=== PATIENT | male | born 1935 | race Caucasian/White ===

== ENCOUNTER 2021-10-29 05:40 | Inpatient (IN) | payer MEDICARE ==
[2021-10-29] MEDS ORDERED: SODIUM CHLORIDE 0.9% 1,000 ML IV STA (05:41)
[2021-10-29] MEDS ORDERED: IPRATROPIUM-ALBUTEROL 3 ML NEB INHALATION STA (05:41)
--- NOTE | 2021-10-29 05:43 | ED ---
SOB HPI - General Stated Complaint: EDGAR, vomiting Time Seen by Provider: 10/29/21 05:41 Source: RN notes reviewed, old records reviewed Mode of arrival: EMS Limitations: no limitations - History of Present Illness Initial Comments: This is a 86-year-old male who presents by EMS. Patient's brought in originally cough for left assessment he is having nausea vomiting and fell out of bed. Patient had significant shortness of breath with hypoxia in the low 80s. Placed on nonrebreather then placed on CPAP. Patient resents the ER with elevated blood sugar T 50s not feeling well persistent nausea vomiting or shortness of breath. MD Complaint: shortness of breath, anxiety -: hour(s) Severity: severe Severity scale (1-10): 8 Consistency: constant Improves With: oxygen Worsens With: nothing Known History Of: other (H a fibrillation) Context: recent URI, recent illness Associated Symptoms: cough, nausea/vomiting Treatments Prior to Arrival: oxygen, bronchodilator, NIPPV, other (Elevated blood sugar) - Related Data Home Medications Medication Instructions Recorded Confirmed Alfuzosin HCl [Alfuzosin HCl ER] 10 mg PO DAILY 10/29/21 10/29/21 Amiodarone HCl [Pacerone] 200 mg PO DAILY 10/29/21 10/29/21 Apixaban [Eliquis] 2.5 mg PO BID 10/29/21 10/29/21 Ascorbic Acid [Vitamin C] 1,000 mg PO DAILY 10/29/21 10/29/21 Atorvastatin [Lipitor] 20 mg PO DAILY 10/29/21 10/29/21 Carvedilol [Coreg] 3.125 mg PO BID-W/MEALS 10/29/21 10/29/21 Cbd Gummy 1 tab PO DAILY 10/29/21 10/29/21 Cholecalciferol [Vitamin D3 (25 50 mcg PO DAILY 10/29/21 10/29/21 Mcg = 1000 Iu)] Cyanocobalamin (Vitamin B-12) 1,000 mcg PO DAILY 10/29/21 10/29/21 [Vitamin B-12] Dulaglutide [Trulicity] 1.5 mg SQ FR 10/29/21 10/29/21 Insulin Aspart [NovoLOG Flexpen] 4 unit SQ ACHS PRN 10/29/21 10/29/21 Insulin Glargine,Hum.rec.anlog 20 unit SQ HS 10/29/21 10/29/21 [Lantus Solostar Pen] Multivitamins, Thera [Multivitamin 1 tab PO DAILY 10/29/21 10/29/21 (formulary)] SILVER sulfADIAZINE CREAM 1 applic TOPICAL DAILY PRN 10/29/21 10/29/21 [Silvadene Cream] Zinc 50 mg PO DAILY 10/29/21 10/29/21 hydroCHLOROthiazide [Hydrodiuril] 50 mg PO DAILY 10/29/21 10/29/21 lisinopriL 40 mg PO DAILY 10/29/21 10/29/21 Allergies Allergy/AdvReac Type Severity Reaction Status Date / Time hydromorphone [From Dilaudid] AdvReac Confusion Verified 10/29/21 11:54 Review of Systems ROS Statement: Those systems with pertinent positive or pertinent negative responses have been documented in the HPI. ROS Other: All systems not noted in ROS Statement are negative. General Exam General appearance: alert, anxious, in distress Head exam: Present: atraumatic, normocephalic, normal inspection Eye exam: Present: normal appearance, PERRL, EOMI. Absent: scleral icterus, conjunctival injection, periorbital swelling ENT exam: Present: normal exam, mucous membranes moist Neck exam: Present: normal inspection. Absent: tenderness, meningismus, lymphadenopathy Respiratory exam: Present: normal lung sounds bilaterally. Absent: respiratory distress, wheezes, rales, rhonchi, stridor Cardiovascular Exam: Present: regular rate, normal rhythm, normal heart sounds. Absent: systolic murmur, diastolic murmur, rubs, gallop, clicks GI/Abdominal exam: Present: soft, normal bowel sounds. Absent: distended, tenderness, guarding, rebound, rigid Extremities exam: Present: normal inspection, full ROM, normal capillary refill. Absent: tenderness, pedal edema, joint swelling, calf tenderness Back exam: Present: normal inspection Neurological exam: Present: alert, oriented X3, CN II-XII intact Psychiatric exam: Present: normal affect, normal mood Skin exam: Present: warm, dry, intact, normal color. Absent: rash Course Vital Signs 10/29/21 10/29/21 10/29/21 05:42 05:49 05:57 Temperature 98.1 F Pulse Rate 84 84 92 Respiratory 22 Rate Blood Pressure 144/99 O2 Sat by Pulse 98 Oximetry 10/29/21 10/29/21 10/29/21 06:17 07:05 07:56 Temperature Pulse Rate 70 72 72 Respiratory 18 18 18 Rate Blood Pressure 144/82 116/65 131/83 O2 Sat by Pulse 98 94 L 95 Oximetry 10/29/21 10/29/21 10/29/21 09:11 11:18 12:31 Temperature Pulse Rate 70 66 66 Respiratory 18 18 18 Rate Blood Pressure 112/101 143/78 O2 Sat by Pulse 94 L 96 99 Oximetry 10/29/21 13:04 Temperature 97.9 F Pulse Rate 68 Respiratory 18 Rate Blood Pressure 146/78 O2 Sat by Pulse 97 Oximetry - Reevaluation(s) Reevaluation #1: 10/29/21 06:06 Medical record is reviewed Reevaluation #2: 10/29/21 Patient does have significant improvement here in the emergency department able to titrate down to just supportive nasal cannula supplement oxygen Reevaluation #3: 10/29/21 Patient informed of results and questions answered - Consultations Consultation #1: Spoke with [facility] were agreeable to admit this patient Medical Decision Making - Medical Decision Making 86 male DF for evaluation coming in for nausea vomiting hypoxia elevated blood sugar. Patient found to be any acute non-ST elevated OH. Patient will be admitted for persistent hypoxia and NSTEMI. Patient has not current chest pain. No fevers. Persistent nausea vomiting which is improved to the emergency department - Lab Data Result diagrams: 10/29/21 05:57 10/29/21 05:57 Lab Results 10/29/21 10/29/21 10/29/21 Range/Units 05:57 05:57 05:57 WBC 14.7 H (3.8-10.6) k/uL RBC 4.40 (4.30-5.90) m/uL Hgb 13.3 (13.0-17.5) gm/dL Hct 42.9 (39.0-53.0) % MCV 97.5 (80.0-100.0) fL MCH 30.3 (25.0-35.0) pg MCHC 31.0 (31.0-37.0) g/dL RDW 14.0 (11.5-15.5) % Plt Count 123 L (150-450) k/uL MPV 11.2 Neutrophils % 93 % Lymphocytes % 2 % Monocytes % 4 % Eosinophils % 1 % Basophils % 0 % Neutrophils # 13.7 H (1.3-7.7) k/uL Lymphocytes # 0.3 L (1.0-4.8) k/uL Monocytes # 0.6 (0-1.0) k/uL Eosinophils # 0.1 (0-0.7) k/uL Basophils # 0.0 (0-0.2) k/uL Hypochromasia Slight PT 12.9 H (9.0-12.0) sec INR 1.2 H (<1.2) APTT 22.6 (22.0-30.0) sec VBG pH (7.31-7.41) VBG pCO2 (37-51) mmHg VBG HCO3 (24-28) mmol/L Sodium (137-145) mmol/L Potassium (3.5-5.1) mmol/L Chloride (98-107) mmol/L Carbon Dioxide (22-30) mmol/L Anion Gap mmol/L BUN (9-20) mg/dL Creatinine (0.66-1.25) mg/dL Est GFR (CKD-EPI)AfAm (>60 ml/min/1.73 sqM) Est GFR (CKD-EPI)NonAf (>60 ml/min/1.73 sqM) Glucose (74-99) mg/dL Plasma Lactic Acid Lewis (0.7-2.0) mmol/L Calcium (8.4-10.2) mg/dL Magnesium (1.6-2.3) mg/dL Total Bilirubin (0.2-1.3) mg/dL AST (17-59) U/L ALT (4-49) U/L Alkaline Phosphatase (38-126) U/L Troponin I (0.000-0.034) ng/mL NT-Pro-B Natriuret Pep pg/mL Total Protein (6.3-8.2) g/dL Albumin (3.5-5.0) g/dL Urine Color Light Red Urine Appearance Cloudy (Clear) Urine pH 6.0 (5.0-8.0) Ur Specific [place] 1.018 (1.001-1.035) Urine Protein 2+ H (Negative) Urine Glucose (UA) Negative (Negative) Urine Ketones Negative (Negative) Urine Blood Large H (Negative) Urine Nitrite Negative (Negative) Urine Bilirubin Negative (Negative) Urine Urobilinogen <2.0 (<2.0) mg/dL Ur Leukocyte Esterase Large H (Negative) Urine RBC >182 H (0-5) /hpf Urine WBC >182 H (0-5) /hpf Ur Squamous Epith Cells 2 (0-4) /hpf Acetone, Qual (Negative) 10/29/21 10/29/21 10/29/21 Range/Units 05:57 05:57 05:57 WBC (3.8-10.6) k/uL RBC (4.30-5.90) m/uL Hgb (13.0-17.5) gm/dL Hct (39.0-53.0) % MCV (80.0-100.0) fL MCH (25.0-35.0) pg MCHC (31.0-37.0) g/dL RDW (11.5-15.5) % Plt Count (150-450) k/uL MPV Neutrophils % % Lymphocytes % % Monocytes % % Eosinophils % % Basophils % % Neutrophils # (1.3-7.7) k/uL Lymphocytes # (1.0-4.8) k/uL Monocytes # (0-1.0) k/uL Eosinophils # (0-0.7) k/uL Basophils # (0-0.2) k/uL Hypochromasia PT (9.0-12.0) sec INR (<1.2) APTT (22.0-30.0) sec VBG pH (7.31-7.41) VBG pCO2 (37-51) mmHg VBG HCO3 (24-28) mmol/L Sodium 139 (137-145) mmol/L Potassium 4.5 (3.5-5.1) mmol/L Chloride 104 (98-107) mmol/L Carbon Dioxide 26 (22-30) mmol/L Anion Gap 9 mmol/L BUN 43 H (9-20) mg/dL Creatinine 1.83 H (0.66-1.25) mg/dL Est GFR (CKD-EPI)AfAm 38 (>60 ml/min/1.73 sqM) Est GFR (CKD-EPI)NonAf 33 (>60 ml/min/1.73 sqM) Glucose 226 H (74-99) mg/dL Plasma Lactic Acid Lewis 1.8 (0.7-2.0) mmol/L Calcium 8.8 (8.4-10.2) mg/dL Magnesium 1.8 (1.6-2.3) mg/dL Total Bilirubin 1.2 (0.2-1.3) mg/dL AST 51 (17-59) U/L ALT 50 H (4-49) U/L Alkaline Phosphatase 154 H (38-126) U/L Troponin I 0.303 H* (0.000-0.034) ng/mL NT-Pro-B Natriuret Pep pg/mL Total Protein 6.5 (6.3-8.2) g/dL Albumin 3.3 L (3.5-5.0) g/dL Urine Color Urine Appearance (Clear) Urine pH (5.0-8.0) Ur Specific [place] (1.001-1.035) Urine Protein (Negative) Urine Glucose (UA) (Negative) Urine Ketones (Negative) Urine Blood (Negative) Urine Nitrite (Negative) Urine Bilirubin (Negative) Urine Urobilinogen (<2.0) mg/dL Ur Leukocyte Esterase (Negative) Urine RBC (0-5) /hpf Urine WBC (0-5) /hpf Ur Squamous Epith Cells (0-4) /hpf Acetone, Qual Negative (Negative) 10/29/21 10/29/21 Range/Units 05:57 06:01 WBC (3.8-10.6) k/uL RBC (4.30-5.90) m/uL Hgb (13.0-17.5) gm/dL Hct (39.0-53.0) % MCV (80.0-100.0) fL MCH (25.0-35.0) pg MCHC (31.0-37.0) g/dL RDW (11.5-15.5) % Plt Count (150-450) k/uL MPV Neutrophils % % Lymphocytes % % Monocytes % % Eosinophils % % Basophils % % Neutrophils # (1.3-7.7) k/uL Lymphocytes # (1.0-4.8) k/uL Monocytes # (0-1.0) k/uL Eosinophils # (0-0.7) k/uL Basophils # (0-0.2) k/uL Hypochromasia PT (9.0-12.0) sec INR (<1.2) APTT (22.0-30.0) sec VBG pH 7.36 (7.31-7.41) VBG pCO2 45 (37-51) mmHg VBG HCO3 25 (24-28) mmol/L Sodium (137-145) mmol/L Potassium (3.5-5.1) mmol/L Chloride (98-107) mmol/L Carbon Dioxide (22-30) mmol/L Anion Gap mmol/L BUN (9-20) mg/dL Creatinine (0.66-1.25) mg/dL Est GFR (CKD-EPI)AfAm (>60 ml/min/1.73 sqM) Est GFR (CKD-EPI)NonAf (>60 ml/min/1.73 sqM) Glucose (74-99) mg/dL Plasma Lactic Acid Lewis (0.7-2.0) mmol/L Calcium (8.4-10.2) mg/dL Magnesium (1.6-2.3) mg/dL Total Bilirubin (0.2-1.3) mg/dL AST (17-59) U/L ALT (4-49) U/L Alkaline Phosphatase (38-126) U/L Troponin I (0.000-0.034) ng/mL NT-Pro-B Natriuret Pep 1570 pg/mL Total Protein (6.3-8.2) g/dL Albumin (3.5-5.0) g/dL Urine Color Urine Appearance (Clear) Urine pH (5.0-8.0) Ur Specific [place] (1.001-1.035) Urine Protein (Negative) Urine Glucose (UA) (Negative) Urine Ketones (Negative) Urine Blood (Negative) Urine Nitrite (Negative) Urine Bilirubin (Negative) Urine Urobilinogen (<2.0) mg/dL Ur Leukocyte Esterase (Negative) Urine RBC (0-5) /hpf Urine WBC (0-5) /hpf Ur Squamous Epith Cells (0-4) /hpf Acetone, Qual (Negative) - EKG Data -: EKG Interpreted by Me (EKG shows atrial fibrillation rate of 81QRS 160 QTC 477) - Radiology Data Radiology results: report reviewed (Chest x-ray shows right pleural effusion), image reviewed Critical Care Time Critical Care Time: Yes Total Critical Care Time: 31 Disposition Clinical Impression: Dehydration, Gastroenteritis, Nausea & vomiting, Hypoxia, Atrial fibrillation, Hyperglycemia, Pleural effusion, left, NSTEMI (non-ST elevated myocardial infarction), NORMA (acute kidney injury) Disposition: ADMITTED IP TO THIS HOSP Condition: Fair Is patient prescribed a controlled substance at d/c from ED?: No
[2021-10-29] MEDS ORDERED: ACETAMINOPHEN TAB 325 MG TAB PO PRN (06:11)
[2021-10-29] MEDS ORDERED: ONDANSETRON 4 MG/2 ML VIAL IVP PRN (06:11)
[2021-10-29] MEDS ORDERED: NALOXONE 0.4 MG/ML 1 ML VIAL IV PRN (06:11)
[2021-10-29] MEDS ORDERED: LORazepam 2 MG/ML INJ IV PRN (06:11)
--- NOTE | 2021-10-29 06:22 | XR ---
EXAMINATION TYPE: XR chest 1V portable DATE OF EXAM: 10/29/2021 COMPARISON: NONE HISTORY: Short of breath TECHNIQUE: Single view FINDINGS: There is blunting left costophrenic angle. There is no heart failure nor confluent pneumoni c infiltrate. There are chest leads. IMPRESSION: Left pleural effusion. Normal heart. No heart failure.
[2021-10-29 06:27] LABS: VBG PH 7.36 (7.31-7.41)
[2021-10-29 06:43] LABS: ALT 50 U/L (4-49); AST 51 U/L (17-59); African American GFR (CKD) 38 (>60 ml/min/1.73 sqM); Albumin 3.3 g/dL (3.5-5.0); Alkaline Phosphatase 154 U/L (38-126); Anion Gap 9 mmol/L; Blood Urea Nitrogen 43 mg/dL (9-20); Calcium 8.8 mg/dL (8.4-10.2); Carbon Dioxide 26 mmol/L (22-30); Chloride 104 mmol/L (98-107); Glucose 226 mg/dL (74-99); Magnesium 1.8 mg/dL (1.6-2.3); Non-African American GFR(CKD) 33 (>60 ml/min/1.73 sqM); Potassium 4.5 mmol/L (3.5-5.1); Sodium 139 mmol/L (137-145); Total Bilirubin 1.2 mg/dL (0.2-1.3); Total Protein 6.5 g/dL (6.3-8.2)
[2021-10-29 06:44] LABS: INR 1.2 (<1.2); Partial Thromboplastin Time 22.6 sec (22.0-30.0); Prothrombin Time 12.9 sec (9.0-12.0)
[2021-10-29] MEDS: SODIUM CHLORIDE 0.9% 1,000 ML IV SCH ×2 (06:50→15:58)
[2021-10-29 06:53] LABS: Basophils % (A) 0 %; Eosinophils # (A) 0.1 k/uL (0-0.7); Eosinophils % (A) 1 %; HCT 42.9 % (39.0-53.0); HGB 13.3 gm/dL (13.0-17.5); Hypochromasia Slight; Lymphocytes # (A) 0.3 k/uL (1.0-4.8); Lymphocytes % (A) 2 %; MCH 30.3 pg (25.0-35.0); MCV 97.5 fL (80.0-100.0); Mean Platelet Volume 11.2; Monocytes # (A) 0.6 k/uL (0-1.0); Monocytes % (A) 4 %; Neutrophils # (A) 13.7 k/uL (1.3-7.7); Neutrophils % (A) 93 %; Platelet Count 123 k/uL (150-450); WBC 14.7 k/uL (3.8-10.6)
[2021-10-29] MEDS: PANTOPRAZOLE 40 MG/10 ML VIAL IV SCH (08:02)
[2021-10-29 12:12] LABS: Appearance,Urine Cloudy (Clear); Bilirubin,Urine Negative (Negative); Blood,Urine Large (Negative); Color,Urine Light Red; Glucose,Urine (UA) Negative (Negative); Ketones,Urine Negative (Negative); Leukocyte Esterase,Urine Large (Negative); Nitrite,Urine Negative (Negative); Protein,Urine 2+ (Negative); RBC,Urine >182 /hpf (0-5); Specific Gravity,Urine 1.018 (1.001-1.035); Squamous Epithelial Cell,Urine 2 /hpf (0-4); Urobilinogen,Urine <2.0 mg/dL (<2.0); WBC,Urine >182 /hpf (0-5)
--- NOTE | 2021-10-29 12:31 | P.CNPUL ---
History of Present Illness Consult date: 10/29/21 Requesting physician: Francisco Lazo Reason for consult: pleural effusion Chief complaint: Weakness, nausea and vomiting, History of present illness: This is an 86-year-old white male, known history of chronic atrial fibrillation, type 2 diabetes, patient is normally maintained on eliquis, he is also on insulin and on trulicity for his diabetes. Patient is also maintained on amiodarone and hydrochlorothiazide. Apparently early this morning, his found him at the edge of the bed extremely weak, and unable to get up on his own. According to the the patient is normally active and he is usually up and about. She tried to get him off the floor and back to the bed, however she couldn't do that. EMS was called, and on arrival the patient was basically very weak, at the edge of the bed, and his blood sugar was in the 300s range. Patient was brought into the ER, he had no symptoms of shortness of breath whatsoever. Patient had no chest pain, he had no nausea and vomiting upon arrival to the ER. He was basically generally weak. Chest x-ray showed a small tiny left pleural effusion, normal x-rays for comparison, it is probably an old effusion, and it is not large enough to consider any thoracentesis. I was asked to see this patient for his left pleural effusion, I believe it is cardiac related unless for otherwise, and is probably chronic. Patient had no pulmonary or cardiac symptoms during my evaluation he had mostly symptoms of weakness. His urinalysis is consistent with pyuria and bacteriuria, and most likely the patient has underlying urinary tract infection. His also noticed hematuria over the last couple of days. In the ER, the patient had a temp of 98.1, he had leukocytosis with WBC count of 14.7. And he had abnormal renal profile with a BUN of 43 creatinine of 1.83, however according to the this is chronic and the patient is usually followed by a salon stylist on a regular basis. His troponin was a bit elevated and again his urinalysis showed hematuria, active urea, polyuria, and positive leukocyte esterase after evaluating the patient in the ER, I felt that the patient had no significant pulmonary symptoms except for the small tiny left pleural effusion with elevated BNP most likely secondary to chronic diastolic congestive heart failure, and I recommended starting the patient on Rocephin for his UTI blood cultures and urine cultures were ordered. Review of Systems ROS unobtainable: due to mental status (Patient is a poor historian, he is hard of hearing, most of the information I obtained from the . And as noted in the HPI.) Past Medical History Past Medical History: Atrial Fibrillation, Diabetes Mellitus Additional Past Medical History / Comment(s): Chronic kidney disease, exact stage is unknown History of Any Multi-Drug Resistant Organisms: None Reported Past Surgical History: Cholecystectomy Smoking Status: Never smoker Past Alcohol Use History: None Reported Past Drug Use History: None Reported Medications and Allergies Home Medications Medication Instructions Recorded Confirmed Type Alfuzosin HCl [Alfuzosin HCl ER] 10 mg PO DAILY 10/29/21 10/29/21 History Amiodarone HCl [Pacerone] 200 mg PO DAILY 10/29/21 10/29/21 History Apixaban [Eliquis] 2.5 mg PO BID 10/29/21 10/29/21 History Ascorbic Acid [Vitamin C] 1,000 mg PO DAILY 10/29/21 10/29/21 History Atorvastatin [Lipitor] 20 mg PO DAILY 10/29/21 10/29/21 History Carvedilol [Coreg] 3.125 mg PO BID-W/MEALS 10/29/21 10/29/21 History Cbd Gummy 1 tab PO DAILY 10/29/21 10/29/21 History Cholecalciferol [Vitamin D3 (25 50 mcg PO DAILY 10/29/21 10/29/21 History Mcg = 1000 Iu)] Cyanocobalamin (Vitamin B-12) 1,000 mcg PO DAILY 10/29/21 10/29/21 History [Vitamin B-12] Dulaglutide [Trulicity] 1.5 mg SQ FR 10/29/21 10/29/21 History Insulin Aspart [NovoLOG Flexpen] 4 unit SQ ACHS PRN 10/29/21 10/29/21 History Insulin Glargine,Hum.rec.anlog 20 unit SQ HS 10/29/21 10/29/21 History [Lantus Solostar Pen] Multivitamins, Thera [Multivitamin 1 tab PO DAILY 10/29/21 10/29/21 History (formulary)] SILVER sulfADIAZINE CREAM 1 applic TOPICAL DAILY PRN 10/29/21 10/29/21 History [Silvadene Cream] Zinc 50 mg PO DAILY 10/29/21 10/29/21 History hydroCHLOROthiazide [Hydrodiuril] 50 mg PO DAILY 10/29/21 10/29/21 History lisinopriL 40 mg PO DAILY 10/29/21 10/29/21 History Allergies Allergy/AdvReac Type Severity Reaction Status Date / Time hydromorphone [From Dilaudid] AdvReac Confusion Verified 10/29/21 11:54 Physical Exam Vitals: Vital Signs Temp Pulse Resp BP Pulse Ox 10/29/21 11:18 66 18 112/101 96 10/29/21 09:11 70 18 94 L 10/29/21 07:56 72 18 131/83 95 10/29/21 07:05 72 18 116/65 94 L 10/29/21 06:17 70 18 144/82 98 10/29/21 05:57 92 10/29/21 05:49 84 10/29/21 05:42 98.1 F 84 22 144/99 98 Intake and Output 10/28/21 10/29/21 10/29/21 22:59 06:59 14:59 Other: Weight 94.3 kg Physical Exam: Revealed an 86-year-old white male in no distress. And again the patient has no pulmonary symptoms during my evaluation. Head: Atraumatic, normocephalic. HEENT:[Neck is supple.] [No neck masses.] [No thyromegaly.] [No JVD.] Chest: [Symmetrical chest expansion, slightly diminished breath sounds at the left base, no rhonchi and no wheezes. Cardiac Exam: Irregular rhythm, no S3 gallop, 2/6 systolic murmur throughout the precordium. Abdomen: [Soft, nontender, no megaly, no rebound, no guarding, normal bowel sounds.] Extremities: [No clubbing, trace of bipedal edema, and chronic venous stasis changes. no cyanosis.] Neurological Exam: Patient is alert oriented 3, hard of hearing, otherwise no focal deficits, patient is generally weak. Psychiatric: Normal mood, affect and normal mental status examination. Skin: No rashes. Musculoskeletal: No deformities and no limitation in range of motion Results - Laboratory Findings CBC and BMP: 10/29/21 05:57 10/29/21 05:57 PT/INR, D-dimer PT 12.9 sec (9.0-12.0) H 10/29/21 05:57 INR 1.2 (<1.2) H 10/29/21 05:57 Abnormal lab findings: Abnormal Labs 10/29/21 10/29/21 10/29/21 05:57 05:57 05:57 WBC 14.7 H Plt Count 123 L Neutrophils # 13.7 H Lymphocytes # 0.3 L PT 12.9 H INR 1.2 H BUN Creatinine Glucose ALT Alkaline Phosphatase Troponin I Albumin Urine Protein 2+ H Urine Blood Large H Ur Leukocyte Esterase Large H Urine RBC >182 H Urine WBC >182 H 10/29/21 10/29/21 10/29/21 05:57 05:57 08:59 WBC Plt Count Neutrophils # Lymphocytes # PT INR BUN 43 H Creatinine 1.83 H Glucose 226 H ALT 50 H Alkaline Phosphatase 154 H Troponin I 0.303 H* 0.551 H* Albumin 3.3 L Urine Protein Urine Blood Ur Leukocyte Esterase Urine RBC Urine WBC - Diagnostic Findings Chest x-ray: image reviewed (As noted in HPI, small tiny left pleural effusion is noted.) Assessment and Plan Assessment: Impression: Weakness most likely secondary to acute urinary tract infection, possible urosepsis. Small left pleural effusion, most likely cardiac in nature and possible chronic diastolic congestive heart failure. Chronic atrial fibrillation. Type 2 diabetes. Chronic kidney disease. No baseline creatinine is known to me Recommendation: No pulmonary issues at present. Except for a small tiny left pleural effusion Start patient on antibiotics empirically for UTI, check urine cultures and blood cultures may have to even consider renal ultrasound, patient did have symptoms of nausea and vomiting at home could very well be secondary to pyelonephritis. Resume home meds and cardiac meds. Nephrology may have to evaluate for his renal failure. Address diabetes accordingly. This will be addressed by the admitting physician. We'll continue to follow. Patient was seen in the ER, and discussed his overall status with the at bedside. Time with Patient: Greater than 30
[2021-10-29] MEDS: carvediloL 3.125 MG TAB PO SCH (16:50)
[2021-10-29 16:56] LABS: Glucose,Whole Blood 170 mg/dL (75-99)
--- NOTE | 2021-10-29 19:38 | P.HPIM ---
History of Present Illness H&P Date: 10/29/21 Chief Complaint: Nausea/vomiting/weakness 86-year-old white male, known history of chronic atrial fibrillation, type 2 diabetes, found by his at the edge of the bed extremely weak, and unable to get up on his own. According to the the patient is normally active and he is usually up and about. She tried to get him off the floor and back to the bed, however she couldn't do that. EMS was called, and on arrival the patient was basically very weak, at the edge of the bed, and his blood sugar was in the 300s range. Patient was brought into the ER, he had no symptoms of shortness of breath whatsoever. Chest x-ray showed a small tiny left pleural effusion, normal x-rays for comparison, it is probably an old effusion, and it is not large enough to consider any thoracentesis; urinalysis is consistent with pyuria and bacteriuria, and most likely the patient has underlying urinary tract infection. His also noticed hematuria over the last couple of days. In the ER, WBC count of 14.7. 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 His troponin was a bit elevated and again his urinalysis showed hematuria, active urea, polyuria, and positive leukocyte esterase after evaluating the patient in the ER, I felt that the patient had no significant pulmonary symptoms except for the small tiny left pleural effusion with elevated BNP most likely secondary to chronic diastolic congestive heart failure . Review of Systems REVIEW OF SYSTEMS: CONSTITUTIONAL: No fever, no malaise, no fatigue. HEENT: No recent visual problems or hearing problems. Denied any sore throat. CARDIOVASCULAR: No chest pain, orthopnea, PND, no palpitations, no syncope. PULMONARY: No shortness of breath, no cough, no hemoptysis. GASTROINTESTINAL: No diarrhea, no nausea, no vomiting, no abdominal pain. NEUROLOGICAL: No headaches, no weakness, no numbness. HEMATOLOGICAL: Denies any bleeding or petechiae. GENITOURINARY: Denies any burning micturition, frequency, or urgency. MUSCULOSKELETAL/RHEUMATOLOGICAL: Denies any joint pain, swelling, or any muscle pain. ENDOCRINE: Denies any polyuria or polydipsia. The rest of the 14-point review of systems is negative. Past Medical History Past Medical History: Atrial Fibrillation, Diabetes Mellitus Additional Past Medical History / Comment(s): Chronic kidney disease, exact stage is unknown History of Any Multi-Drug Resistant Organisms: None Reported Past Surgical History: Cholecystectomy Smoking Status: Never smoker Past Alcohol Use History: None Reported Past Drug Use History: None Reported Medications and Allergies Home Medications Medication Instructions Recorded Confirmed Type Alfuzosin HCl [Alfuzosin HCl ER] 10 mg PO DAILY 10/29/21 10/29/21 History Amiodarone HCl [Pacerone] 200 mg PO DAILY 10/29/21 10/29/21 History Apixaban [Eliquis] 2.5 mg PO BID 10/29/21 10/29/21 History Ascorbic Acid [Vitamin C] 1,000 mg PO DAILY 10/29/21 10/29/21 History Atorvastatin [Lipitor] 20 mg PO DAILY 10/29/21 10/29/21 History Carvedilol [Coreg] 3.125 mg PO BID-W/MEALS 10/29/21 10/29/21 History Cbd Gummy 1 tab PO DAILY 10/29/21 10/29/21 History Cholecalciferol [Vitamin D3 (25 50 mcg PO DAILY 10/29/21 10/29/21 History Mcg = 1000 Iu)] Cyanocobalamin (Vitamin B-12) 1,000 mcg PO DAILY 10/29/21 10/29/21 History [Vitamin B-12] Dulaglutide [Trulicity] 1.5 mg SQ FR 10/29/21 10/29/21 History Insulin Aspart [NovoLOG Flexpen] 4 unit SQ ACHS PRN 10/29/21 10/29/21 History Insulin Glargine,Hum.rec.anlog 20 unit SQ HS 10/29/21 10/29/21 History [Lantus Solostar Pen] Multivitamins, Thera [Multivitamin 1 tab PO DAILY 10/29/21 10/29/21 History (formulary)] SILVER sulfADIAZINE CREAM 1 applic TOPICAL DAILY PRN 10/29/21 10/29/21 History [Silvadene Cream] Zinc 50 mg PO DAILY 10/29/21 10/29/21 History hydroCHLOROthiazide [Hydrodiuril] 50 mg PO DAILY 10/29/21 10/29/21 History lisinopriL 40 mg PO DAILY 10/29/21 10/29/21 History Allergies Allergy/AdvReac Type Severity Reaction Status Date / Time hydromorphone [From Dilaudid] AdvReac Confusion Verified 10/29/21 11:54 Physical Exam Vitals: Vital Signs Temp Pulse Pulse Resp BP BP Pulse Ox 10/29/21 13:30 97.5 F L 72 18 155/77 92 L 10/29/21 13:04 97.9 F 68 18 146/78 97 10/29/21 12:31 66 18 143/78 99 10/29/21 11:18 66 18 112/101 96 10/29/21 09:11 70 18 94 L 10/29/21 07:56 72 18 131/83 95 10/29/21 07:05 72 18 116/65 94 L 10/29/21 06:17 70 18 144/82 98 10/29/21 05:57 92 10/29/21 05:49 84 10/29/21 05:42 98.1 F 84 22 144/99 98 Intake and Output 10/28/21 10/29/21 10/29/21 22:59 06:59 14:59 Other: Weight 94.3 kg 94.3 kg PHYSICAL EXAMINATION: GENERAL: The patient is alert and oriented x3, not in any acute distress. Well developed, well nourished. HEENT: Pupils are round and equally reacting to light. EOMI. No scleral icterus. No conjunctival pallor. Normocephalic, atraumatic. No pharyngeal erythema. No thyromegaly. CARDIOVASCULAR: S1 and S2 present. No murmurs, rubs, or gallops. PULMONARY: Chest is clear to auscultation, no wheezing or crackles. ABDOMEN: Soft, nontender, nondistended, normoactive bowel sounds. No palpable organomegaly. MUSCULOSKELETAL: No joint swelling or deformity. EXTREMITIES: No cyanosis, clubbing, or pedal edema. NEUROLOGICAL: Gross neurological examination did not reveal any focal deficits. SKIN: No rashes. Results CBC & Chem 7: 10/29/21 05:57 10/29/21 05:57 Labs: Abnormal Lab Results - Last 24 Hours (Table) 10/29/21 10/29/21 10/29/21 Range/Units 05:57 05:57 05:57 WBC 14.7 H (3.8-10.6) k/uL Plt Count 123 L (150-450) k/uL Neutrophils # 13.7 H (1.3-7.7) k/uL Lymphocytes # 0.3 L (1.0-4.8) k/uL PT 12.9 H (9.0-12.0) sec INR 1.2 H (<1.2) BUN (9-20) mg/dL Creatinine (0.66-1.25) mg/dL Glucose (74-99) mg/dL ALT (4-49) U/L Alkaline Phosphatase (38-126) U/L Troponin I (0.000-0.034) ng/mL Albumin (3.5-5.0) g/dL Urine Protein 2+ H (Negative) Urine Blood Large H (Negative) Ur Leukocyte Esterase Large H (Negative) Urine RBC >182 H (0-5) /hpf Urine WBC >182 H (0-5) /hpf 10/29/21 10/29/21 10/29/21 Range/Units 05:57 05:57 08:59 WBC (3.8-10.6) k/uL Plt Count (150-450) k/uL Neutrophils # (1.3-7.7) k/uL Lymphocytes # (1.0-4.8) k/uL PT (9.0-12.0) sec INR (<1.2) BUN 43 H (9-20) mg/dL Creatinine 1.83 H (0.66-1.25) mg/dL Glucose 226 H (74-99) mg/dL ALT 50 H (4-49) U/L Alkaline Phosphatase 154 H (38-126) U/L Troponin I 0.303 H* 0.551 H* (0.000-0.034) ng/mL Albumin 3.3 L (3.5-5.0) g/dL Urine Protein (Negative) Urine Blood (Negative) Ur Leukocyte Esterase (Negative) Urine RBC (0-5) /hpf Urine WBC (0-5) /hpf 10/29/21 Range/Units 11:48 WBC (3.8-10.6) k/uL Plt Count (150-450) k/uL Neutrophils # (1.3-7.7) k/uL Lymphocytes # (1.0-4.8) k/uL PT (9.0-12.0) sec INR (<1.2) BUN (9-20) mg/dL Creatinine (0.66-1.25) mg/dL Glucose (74-99) mg/dL ALT (4-49) U/L Alkaline Phosphatase (38-126) U/L Troponin I 0.583 H* (0.000-0.034) ng/mL Albumin (3.5-5.0) g/dL Urine Protein (Negative) Urine Blood (Negative) Ur Leukocyte Esterase (Negative) Urine RBC (0-5) /hpf Urine WBC (0-5) /hpf Assessment and Plan Assessment: 1. UTI; patient has been placed on Rocephin 1 g IV daily; urine culture and blood cultures are ordered and pending 2. Hypoxia/left-sided pleural effusion; consult pulmonary 3. Elevated troponin; troponin was found to be at 0.30 which trended up to 0 .551; we will monitor EKG; 2-D echo; cardiology is consulted 4. Diabetes mellitus type 2; monitor Accu-Cheks before meals and at bedtime with insulin sliding scale 5. Acute on Chronic kidney disease; patient remains on IV fluids in form of normal saline; we will monitor strict TERESITA's, daily weights, renal function and electrolytes; avoid nephrotoxins 6. Generalized weakness likely related to UTI 7. Atrial fibrillation; rate controlled on amiodarone 200 mg daily and Coreg 3.125 mg twice a day; continue with oral anticoagulation 8. Hypertension; Coreg 3.125 mg twice a day DVT prophylaxis; SCDs/systemic anticoagulation CODE STATUS; full code
[2021-10-29] MEDS: APIXABAN 2.5 MG TABLET PO SCH (20:21)
[2021-10-29 20:38] LABS: Glucose,Whole Blood 179 mg/dL (75-99)
[2021-10-30] MEDS: MORPHINE SULFATE 4 MG/ML SYRINGE IV PRN ×3 (03:22→21:07)
[2021-10-30] MEDS: SODIUM CHLORIDE 0.9% 1,000 ML IV SCH ×3 (04:31→08:55)
[2021-10-30 05:55] LABS: Glucose,Whole Blood 175 mg/dL (75-99)
[2021-10-30] MEDS: carvediloL 3.125 MG TAB PO SCH ×2 (06:58→16:35)
[2021-10-30 07:24] LABS: Albumin 2.7 g/dL (3.5-5.0); Calcium 8.1 mg/dL (8.4-10.2); Magnesium 1.7 mg/dL (1.6-2.3); Potassium 4.4 mmol/L (3.5-5.1); Total Bilirubin 1.2 mg/dL (0.2-1.3); Total Protein 5.7 g/dL (6.3-8.2)
[2021-10-30 07:25] LABS: INR 1.4 (<1.2); Prothrombin Time 14.8 sec (9.0-12.0)
[2021-10-30 07:27] LABS: Basophils # (A) 0.1 k/uL (0-0.2); Basophils % (A) 1 %; Eosinophils % (A) 0 %; HCT 45.1 % (39.0-53.0); HGB 13.5 gm/dL (13.0-17.5); Hypochromasia Slight; Lymphocytes # (A) 0.6 k/uL (1.0-4.8); Lymphocytes % (A) 4 %; MCH 29.5 pg (25.0-35.0); MCHC 29.9 g/dL (31.0-37.0); MCV 98.6 fL (80.0-100.0); Mean Platelet Volume 11.7; Monocytes # (A) 0.6 k/uL (0-1.0); Monocytes % (A) 4 %; Neutrophils # (A) 12.8 k/uL (1.3-7.7); Neutrophils % (A) 89 %; Platelet Count 117 k/uL (150-450); RBC 4.58 m/uL (4.30-5.90); RDW 13.8 % (11.5-15.5); WBC 14.3 k/uL (3.8-10.6)
[2021-10-30] MEDS: AMIODARONE 200 MG TAB PO SCH (08:38)
[2021-10-30] MEDS: APIXABAN 2.5 MG TABLET PO SCH ×2 (08:38→21:06)
[2021-10-30] MEDS: TAMSULOSIN 0.4 MG CAP.ER.24H PO SCH (08:38)
[2021-10-30] MEDS: ATORVASTATIN 20 MG TAB PO SCH (08:38)
[2021-10-30] MEDS: PANTOPRAZOLE 40 MG/10 ML VIAL IV SCH (08:39)
--- NOTE | 2021-10-30 09:58 | P.GSCN ---
History of Present Illness Consult date: 10/30/21 Reason for Consult: Hematuria, incomplete bladder emptying Requesting physician: Francisco Lazo History of present illness: The patient is an 86-year-old white male brought to the ER due to significant weakness. Urinalysis is shown evidence of a UTI. He is currently receiving Rocephin. A urine culture was ordered. He has been found to have incomplete bladder emptying, with Bladder Scans ranging between 475-600 mL. Attempts by the nursing staff to insert a Gutierrez catheter have been unsuccessful. The patient is a vague historian but does report that he has taken alfuzosin for many years, and that he has recently noted hematuria. Review of Systems - Constitutional Reports weakness, Denies chills, Denies fever - EENT Ears: bilateral: decreased hearing - Gastrointestinal Reports nausea, Reports vomiting - Genitourinary Reports as per HPI Past Medical History Past Medical History: Atrial Fibrillation, Diabetes Mellitus Additional Past Medical History / Comment(s): Chronic kidney disease, exact stage is unknown History of Any Multi-Drug Resistant Organisms: None Reported Past Surgical History: Cholecystectomy Smoking Status: Never smoker Past Alcohol Use History: None Reported Past Drug Use History: None Reported Medications and Allergies Home Medications Medication Instructions Recorded Confirmed Type Alfuzosin HCl [Alfuzosin HCl ER] 10 mg PO DAILY 10/29/21 10/29/21 History Amiodarone HCl [Pacerone] 200 mg PO DAILY 10/29/21 10/29/21 History Apixaban [Eliquis] 2.5 mg PO BID 10/29/21 10/29/21 History Ascorbic Acid [Vitamin C] 1,000 mg PO DAILY 10/29/21 10/29/21 History Atorvastatin [Lipitor] 20 mg PO DAILY 10/29/21 10/29/21 History Carvedilol [Coreg] 3.125 mg PO BID-W/MEALS 10/29/21 10/29/21 History Cbd Gummy 1 tab PO DAILY 10/29/21 10/29/21 History Cholecalciferol [Vitamin D3 (25 50 mcg PO DAILY 10/29/21 10/29/21 History Mcg = 1000 Iu)] Cyanocobalamin (Vitamin B-12) 1,000 mcg PO DAILY 10/29/21 10/29/21 History [Vitamin B-12] Dulaglutide [Trulicity] 1.5 mg SQ FR 10/29/21 10/29/21 History Insulin Aspart [NovoLOG Flexpen] 4 unit SQ ACHS PRN 10/29/21 10/29/21 History Insulin Glargine,Hum.rec.anlog 20 unit SQ HS 10/29/21 10/29/21 History [Lantus Solostar Pen] Multivitamins, Thera [Multivitamin 1 tab PO DAILY 10/29/21 10/29/21 History (formulary)] SILVER sulfADIAZINE CREAM 1 applic TOPICAL DAILY PRN 10/29/21 10/29/21 History [Silvadene Cream] Zinc 50 mg PO DAILY 10/29/21 10/29/21 History hydroCHLOROthiazide [Hydrodiuril] 50 mg PO DAILY 10/29/21 10/29/21 History lisinopriL 40 mg PO DAILY 10/29/21 10/29/21 History Allergies Allergy/AdvReac Type Severity Reaction Status Date / Time hydromorphone [From Dilaudid] AdvReac Confusion Verified 10/29/21 11:54 Surgical - Exam Vital Signs Temp Pulse Resp BP Pulse Ox 98.1 F 84 22 144/99 98 10/29/21 05:42 10/29/21 05:42 10/29/21 05:42 10/29/21 05:42 10/29/21 05:42 - General well developed, well nourished, no distress - Respiratory normal respiratory effort - Abdomen Abdomen: soft, non tender, no guarding, no rigid, no rebound - Genitourinary Uncircumcised phallus with phimosis. The scrotum and testes are normal. - Rectum Rectum: normal sphincter tone, no masses, other (I am all knee able to palpate the prostatic apex, which is palpably normal.) - Psychiatric oriented to time, oriented to person, oriented to place, speech is normal, memory intact Results - Labs 10/30/21 06:28 10/30/21 06:28 Abnormal Lab Results - Last 24 Hours (Table) 10/29/21 10/29/21 10/29/21 Range/Units 05:57 08:59 11:48 POC Glucose (mg/dL) (75-99) mg/dL Troponin I 0.551 H* 0.583 H* (0.000-0.034) ng/mL Urine Protein 2+ H (Negative) Urine Blood Large H (Negative) Ur Leukocyte Esterase Large H (Negative) Urine RBC >182 H (0-5) /hpf Urine WBC >182 H (0-5) /hpf 10/29/21 10/29/21 10/30/21 Range/Units 16:55 20:35 05:51 POC Glucose (mg/dL) 170 H 179 H 175 H (75-99) mg/dL Troponin I (0.000-0.034) ng/mL Urine Protein (Negative) Urine Blood (Negative) Ur Leukocyte Esterase (Negative) Urine RBC (0-5) /hpf Urine WBC (0-5) /hpf Assessment and Plan (1) UTI (urinary tract infection) Current Visit: Yes Status: Acute Code(s): N39.0 - URINARY TRACT INFECTION, SITE NOT SPECIFIED SNOMED Code(s): 26400815 (2) Phimosis Current Visit: Yes Status: Acute Code(s): N47.1 - PHIMOSIS SNOMED Code(s): 106003354 (3) Urinary retention Current Visit: Yes Status: Acute Code(s): R33.9 - RETENTION OF URINE, UNSPECIFIED SNOMED Code(s): 433518336 Plan: With significant difficulty, I was able to place a 12-British Gutierrez catheter. 7 50 mL of cloudy urine was obtained. I would suggest that the catheter remain in place for several days, and that he continue to receive Rocephin pending the final urine culture result. Ultimately, he would be best served undergoing a circumcision (or at least a dorsal slit) with meatotomy and/or internal ureterotomy. Time with Patient: Greater than 30
--- NOTE | 2021-10-30 10:02 | P.PCN ---
Date of Procedure: 10/30/21 Preoperative Diagnosis: Phimosis, urinary retention Postoperative Diagnosis: Same Procedure(s) Performed: Urethral dilation, Gutierrez catheter insertion Anesthesia: none Surgeon: Iftikhar Haines Estimated Blood Loss (ml): 0 Pathology: none sent Condition: stable Disposition: no change Indications for Procedure: The patient is an 86-year-old white male admitted for UTI treatment. He has been found to be in urinary retention, and attempts by the nursing staff to place a Gutierrez catheter were unsuccessful. The patient is noted to have phimosis. Operative Findings: Phimosis, meatal stenosis or fossa navicular stricture. Description of Procedure: The patient lied supine in his hospital bed. The penis was prepped and draped sterilely. The patient has phimosis and the foreskin could not be retracted. An attempt was made to advance a 16-Barbadian Gutierrez catheter, but the urethral meatus could not be cannulated. Similarly, attempts to place a 12-Barbadian silicone catheter were unsuccessful. A 5-Barbadian filiform was successfully a dvanced through the meatus and into the bladder. 10 and 14-Barbadian followers were placed. An angle-tip 0.035 inch wire was passed through the 14-Barbadian follower, which was then removed along with the filiform. The scalpel was used to incise the tip of the 16-Barbadian catheter, but it could not be advanced over the wire. The scalpel was then used to incise the tip of the 12-Barbadian silicone catheter, which was advanced over the wire and into the bladder. 750 mL of cloudy urine returned.
--- NOTE | 2021-10-30 10:26 | P.CRDCN ---
History of Present Illness Consult date: 10/30/21 Chief complaint: Change in mental status History of present illness: This is an 86-year-old gentleman with a past medical history significant for permanent atrial fibrillation currently on oral anticoagulation as well as amiodarone are on and also diabetes and hypertension and dyslipidemia and chronic kidney disease. We consulted to see the patient because of abnormal cardiac enzymes. The patient somewhat is a poor historian. He was very weak lately and apparently he fell on the floor and it was very hard for him to get up. Normally he is very active physically. His try to get him up but she was unable. Ambulance was called and the patient was brought to the emergency department. No indication that the patient was experiencing any symptoms of chest pain or chest discomfort or any shortness of breath. He underwent a uday p including cardiac enzymes came in to be abnormal but the EKG showed atrial fibrillation with diffuse nonspecific ST and T wave abnormalities. He underwent also a chest x-ray which showed left pleural effusion and pulmonary was consulted to see the patient. Also the patient was found to be in renal failure with a creatinine of 1.83. Also he underwent urinalysis which showed possible bacteriuria and possible UTI. WBC was mildly elevated. There is also a concern regarding possible urinary obstruction because Gutierrez catheter was attempted and was unsuccessful and currently the patient is in process to be seen by the urology service. When the patient was seen and evaluated he has a very mild bilateral lower extremities edema was diminished breathing sounds bilaterally but overall he doesn't seems to be in any overt congestive heart failure. For further stratification and evaluation an echocardiogram was ordered. Past Medical History Past Medical History: Atrial Fibrillation, Diabetes Mellitus Additional Past Medical History / Comment(s): Chronic kidney disease, exact stage is unknown History of Any Multi-Drug Resistant Organisms: None Reported Past Surgical History: Cholecystectomy Smoking Status: Never smoker Past Alcohol Use History: None Reported Past Drug Use History: None Reported Medications and Allergies Home Medications Medication Instructions Recorded Confirmed Type Alfuzosin HCl [Alfuzosin HCl ER] 10 mg PO DAILY 10/29/21 10/29/21 History Amiodarone HCl [Pacerone] 200 mg PO DAILY 10/29/21 10/29/21 History Apixaban [Eliquis] 2.5 mg PO BID 10/29/21 10/29/21 History Ascorbic Acid [Vitamin C] 1,000 mg PO DAILY 10/29/21 10/29/21 History Atorvastatin [Lipitor] 20 mg PO DAILY 10/29/21 10/29/21 History Carvedilol [Coreg] 3.125 mg PO BID-W/MEALS 10/29/21 10/29/21 History Cbd Gummy 1 tab PO DAILY 10/29/21 10/29/21 History Cholecalciferol [Vitamin D3 (25 50 mcg PO DAILY 10/29/21 10/29/21 History Mcg = 1000 Iu)] Cyanocobalamin (Vitamin B-12) 1,000 mcg PO DAILY 10/29/21 10/29/21 History [Vitamin B-12] Dulaglutide [Trulicity] 1.5 mg SQ FR 10/29/21 10/29/21 History Insulin Aspart [NovoLOG Flexpen] 4 unit SQ ACHS PRN 10/29/21 10/29/21 History Insulin Glargine,Hum.rec.anlog 20 unit SQ HS 10/29/21 10/29/21 History [Lantus Solostar Pen] Multivitamins, Thera [Multivitamin 1 tab PO DAILY 10/29/21 10/29/21 History (formulary)] SILVER sulfADIAZINE CREAM 1 applic TOPICAL DAILY PRN 10/29/21 10/29/21 History [Silvadene Cream] Zinc 50 mg PO DAILY 10/29/21 10/29/21 History hydroCHLOROthiazide [Hydrodiuril] 50 mg PO DAILY 10/29/21 10/29/21 History lisinopriL 40 mg PO DAILY 10/29/21 10/29/21 History Allergies Allergy/AdvReac Type Severity Reaction Status Date / Time hydromorphone [From Dilaudid] AdvReac Confusion Verified 10/29/21 11:54 Physical Exam Vitals: Vital Signs Temp Pulse Pulse Resp BP BP Pulse Ox 10/30/21 08:38 98 F 87 20 186/86 94 L 10/30/21 08:00 20 10/30/21 07:37 97 10/30/21 03:20 97.7 F 69 18 177/85 97 10/29/21 20:00 97.9 F 72 16 175/94 97 10/29/21 13:30 97.5 F L 72 18 155/77 92 L 10/29/21 13:04 97.9 F 68 18 146/78 97 10/29/21 12:31 66 18 143/78 99 10/29/21 11:18 66 18 112/101 96 Intake and Output 10/29/21 10/30/21 10/30/21 22:59 06:59 14:59 Output Total 200 200 750 Balance -200 -200 -750 Output: Urine 200 100 750 Uretheral (Gutierrez) 750 Post Void Residual 100 Other: Voiding Method Urinal Urinal Urinal # Voids 0 # Bowel Movements 2 1 - Constitutional General appearance: no acute distress - Respiratory Respiratory: bilateral: diminished - Cardiovascular Rhythm: irregularly irregular Heart sounds: normal: S1, S2 Abnormal Heart Sounds: systolic murmur Results 10/30/21 06:28 10/30/21 06:28 Cardiac Enzymes 10/29/21 10/30/21 Range/Units 11:48 06:28 AST 62 H (17-59) U/L Troponin I 0.583 H* (0.000-0.034) ng/mL Coagulation 10/30/21 Range/Units 06:28 PT 14.8 H (9.0-12.0) sec CBC 10/30/21 Range/Units 06:28 WBC 14.3 H (3.8-10.6) k/uL RBC 4.58 (4.30-5.90) m/uL Hgb 13.5 (13.0-17.5) gm/dL Hct 45.1 (39.0-53.0) % Plt Count 117 L (150-450) k/uL Comprehensive Metabolic Panel 10/30/21 Range/Units 06:28 Sodium 136 L (137-145) mmol/L Potassium 4.4 (3.5-5.1) mmol/L Chloride 100 (98-107) mmol/L Carbon Dioxide 28 (22-30) mmol/L BUN 46 H (9-20) mg/dL Creatinine 2.02 H (0.66-1.25) mg/dL Glucose 185 H (74-99) mg/dL Calcium 8.1 L (8.4-10.2) mg/dL AST 62 H (17-59) U/L ALT 65 H (4-49) U/L Alkaline Phosphatase 88 (38-126) U/L Total Protein 5.7 L (6.3-8.2) g/dL Albumin 2.7 L (3.5-5.0) g/dL Current Medications Generic Name Dose Route Start Last Admin Trade Name Freq PRN Reason Stop Dose Admin Acetaminophen 650 mg 10/29/21 06:11 Acetaminophen Tab 325 Mg Tab PO Q6HR PRN Mild Pain or Fever > 100.5 Amiodarone HCl 200 mg 10/30/21 09:00 10/30/21 08:38 Amiodarone 200 Mg Tab PO 200 mg DAILY RHINA Administration Apixaban 2.5 mg 10/29/21 21:00 10/30/21 08:38 Apixaban 2.5 Mg Tablet PO 2.5 mg BID RHINA Administration Protocol Atorvastatin Calcium 20 mg 10/30/21 09:00 10/30/21 08:38 Atorvastatin 20 Mg Tab PO 20 mg DAILY RHINA Administration Carvedilol 3.125 mg 10/29/21 17:30 10/30/21 06:58 Carvedilol 3.125 Mg Tab PO 3.125 mg BID-W/MEALS RHINA Administration Sodium Chloride 1,000 mls @ 130 mls/hr 10/29/21 06:15 10/30/21 08:55 Saline 0.9% IV Not Given .[id number] RHINA Ceftriaxone Sodium 1 gm/ 50 mls @ 100 mls/hr 10/29/21 12:15 10/30/21 08:35 Sodium Chloride IVPB 100 mls/hr Q24HR [facility] Administration Protocol Insulin Aspart 4 unit 10/29/21 15:10 Insulin Aspart (Novolog) 100 Unit/Ml Vial SQ ACHS PRN BS >200 Lorazepam 0.5 mg 10/29/21 06:11 Lorazepam 2 Mg/Ml Inj IV Q6HR PRN Anxiety Morphine Sulfate 4 mg 10/29/21 06:11 10/30/21 08:47 Morphine Sulfate 4 Mg/Ml Syringe IV 4 mg Q4HR PRN Administration Severe Pain Naloxone HCl 0.2 mg 10/29/21 06:11 Naloxone 0.4 Mg/Ml 1 Ml Vial IV Q2M PRN Opioid Reversal Ondansetron HCl 4 mg 10/29/21 06:11 Ondansetron 4 Mg/2 Ml Vial IVP Q8HR PRN Nausea And Vomiting Pantoprazole Sodium 40 mg 10/29/21 09:00 10/30/21 08:39 Pantoprazole 40 Mg/10 Ml Vial IV 40 mg DAILY RHINA Administration Tamsulosin HCl 0.4 mg 10/30/21 09:00 10/30/21 08:38 Tamsulosin 0.4 Mg Cap.Er.24h PO 0.4 mg DAILY RHINA Administration Intake and Output 10/29/21 10/30/21 10/30/21 22:59 06:59 14:59 Output Total 200 200 750 Balance -200 -200 -750 Output: Urine 200 100 750 Uretheral (Gutierrez) 750 Post Void Residual 100 Other: Voiding Method Urinal Urinal Urinal # Voids 0 # Bowel Movements 2 1 10/30/21 06:28 10/30/21 06:28 Assessment and Plan Assessment: Assessment #1 evidence of myocardial injury without any evidence of ischemia #2 the abnormal cardiac enzymes is likely related to renal failure #3 possible urinary obstruction contributing to the renal failure #4 permanent atrial fibrillation was controlled heart rate #5 acute on chronic renal failure #6 left pleural effusion #7 diabetes type 2 #8 multiple comorbid conditions Plan #1 the patient does not seems to be in overt congestive heart failure at this point #2 rule out urinary obstruction. Urology team is on the case #3 consider medical treatment for the mildly abnormal troponin #4 avoid any nephrotoxic medication #5 obtain an echocardiogram was Doppler
[2021-10-30 11:39] LABS: Glucose,Whole Blood 207 mg/dL (75-99)
[2021-10-30 16:14] LABS: Glucose,Whole Blood 231 mg/dL (75-99)
--- NOTE | 2021-10-30 17:05 | P.PN ---
Subjective Progress Note Date: 10/30/21 Principal diagnosis: UTI Hypoxia/left sided pleural effusion Elevated troponin/NSTEMI Urinary retention/obstruction 86-year-old white male, known history of chronic atrial fibrillation, type 2 diabetes, found by his at the edge of the bed extremely weak, and unable to get up on his own. According to the the patient is normally active and he is usually up and about. She tried to get him off the floor and back to the bed, however she couldn't do that. EMS was called, and on arrival the patient was basically very weak, at the edge of the bed, and his blood sugar was in the 300s range. Patient was brought into the ER, he had no symptoms of shortness of breath whatsoever. Chest x-ray showed a small tiny left pleural effusion, normal x-rays for comparison, it is probably an old effusion, and it is not large enough to consider any thoracentesis; urinalysis is consistent with pyuria and bacteriuria, and most likely the patient has underlying urinary tract infection. His also noticed hematuria over the last couple of days. In the ER, WBC count of 14.7. And he had abnormal renal profile with a BUN of 43 creatinine of 1.83, however according to the this is chronic and the patient is usually followed by a relationship manager on a regular basis. His troponin was a bit elevated and again his urinalysis showed hematuria, active urea, polyuria, and positive leukocyte esterase after evaluating the patient in the ER, I felt that the patient had no significant pulmonary symptoms except for the small tiny left pleural effusion with elevated BNP most likely secondary to chronic diastolic congestive heart failure Patient had episode of urinary retention yesterday; Gutierrez catheter could not be placed; urology is consulted for hematuria and incomplete emptying; Gutierrez catheter in place now and urology recommending to continue with catheter for several days; continue with IV Rocephin to final urine culture results are avalonso seg[place]; Ultimately, he would be best served undergoing a circumcision (or at least a dorsal slit) with meatotomy and/or internal ureterotomy Cardiology on board and recommending medical management for mild elevation in troponin Objective - Vital Signs Vital signs: Vital Signs Temp 98 F 10/30/21 08:38 Pulse 87 10/30/21 08:38 Resp 20 10/30/21 08:38 BP 186/86 10/30/21 08:38 Pulse Ox 94 L 10/30/21 08:38 Intake & Output 10/29/21 10/30/21 10/30/21 18:59 06:59 18:59 Output Total 400 750 Balance -400 -750 Weight 94.3 kg Output: Urine 300 750 Uretheral (Gutierrez) 750 Post Void Residual 100 Other: Voiding Method Urinal Urinal # Voids 0 # Bowel Movements 1 - Exam PHYSICAL EXAMINATION: GENERAL: The patient is alert and oriented x3, not in any acute distress. Well developed, well nourished. HEENT: Pupils are round and equally reacting to light. EOMI. No scleral icterus. No conjunctival pallor. Normocephalic, atraumatic. No pharyngeal erythema. No thyromegaly. CARDIOVASCULAR: S1 and S2 present. No murmurs, rubs, or gallops. PULMONARY: Chest is clear to auscultation, no wheezing or crackles. ABDOMEN: Soft, nontender, nondistended, normoactive bowel sounds. No palpable organomegaly. MUSCULOSKELETAL: No joint swelling or deformity. EXTREMITIES: No cyanosis, clubbing, or pedal edema. NEUROLOGICAL: Gross neurological examination did not reveal any focal deficits. SKIN: No rashes. - Labs CBC & Chem 7: 10/30/21 06:28 10/30/21 06:28 Labs: Abnormal Lab Results - Last 24 Hours (Table) 10/29/21 10/29/21 10/30/21 Range/Units 16:55 20:35 05:51 WBC (3.8-10.6) k/uL MCHC (31.0-37.0) g/dL Plt Count (150-450) k/uL Neutrophils # (1.3-7.7) k/uL Lymphocytes # (1.0-4.8) k/uL PT (9.0-12.0) sec INR (<1.2) Sodium (137-145) mmol/L BUN (9-20) mg/dL Creatinine (0.66-1.25) mg/dL Glucose (74-99) mg/dL POC Glucose (mg/dL) 170 H 179 H 175 H (75-99) mg/dL Calcium (8.4-10.2) mg/dL AST (17-59) U/L ALT (4-49) U/L Total Protein (6.3-8.2) g/dL Albumin (3.5-5.0) g/dL 10/30/21 10/30/21 10/30/21 Range/Units 06:28 06:28 06:28 WBC 14.3 H (3.8-10.6) k/uL MCHC 29.9 L (31.0-37.0) g/dL Plt Count 117 L (150-450) k/uL Neutrophils # 12.8 H (1.3-7.7) k/uL Lymphocytes # 0.6 L (1.0-4.8) k/uL PT 14.8 H (9.0-12.0) sec INR 1.4 H (<1.2) Sodium 136 L (137-145) mmol/L BUN 46 H (9-20) mg/dL Creatinine 2.02 H (0.66-1.25) mg/dL Glucose 185 H (74-99) mg/dL POC Glucose (mg/dL) (75-99) mg/dL Calcium 8.1 L (8.4-10.2) mg/dL AST 62 H (17-59) U/L ALT 65 H (4-49) U/L Total Protein 5.7 L (6.3-8.2) g/dL Albumin 2.7 L (3.5-5.0) g/dL 10/30/21 Range/Units 11:37 WBC (3.8-10.6) k/uL MCHC (31.0-37.0) g/dL Plt Count (150-450) k/uL Neutrophils # (1.3-7.7) k/uL Lymphocytes # (1.0-4.8) k/uL PT (9.0-12.0) sec INR (<1.2) Sodium (137-145) mmol/L BUN (9-20) mg/dL Creatinine (0.66-1.25) mg/dL Glucose (74-99) mg/dL POC Glucose (mg/dL) 207 H (75-99) mg/dL Calcium (8.4-10.2) mg/dL AST (17-59) U/L ALT (4-49) U/L Total Protein (6.3-8.2) g/dL Albumin (3.5-5.0) g/dL Assessment and Plan Assessment: 1. UTI; patient has been placed on Rocephin 1 g IV daily; urine culture and blood cultures are ordered and pending 2. Hypoxia/left-sided pleural effusion; consult pulmonary 3. Elevated troponin; troponin was found to be at 0.30 which trended up to 0. 551; we will monitor EKG; 2-D echo; cardiology is consulted 4. Diabetes mellitus type 2; monitor Accu-Cheks before meals and at bedtime with insulin sliding scale 5. Acute on Chronic kidney disease; patient remains on IV fluids in form of normal saline; we will monitor strict TERESITA's, daily weights, renal function and electrolytes; avoid nephrotoxins 6. Generalized weakness likely related to UTI 7. Atrial fibrillation; rate controlled on amiodarone 200 mg daily and Coreg 3.125 mg twice a day; continue with oral anticoagulation 8. Hypertension; Coreg 3.125 mg twice a day DVT prophylaxis; SCDs/systemic anticoagulation CODE STATUS; full code
[2021-10-30 19:36] LABS: Glucose,Whole Blood 205 mg/dL (75-99)
--- NOTE | 2021-10-30 22:51 | XR ---
EXAMINATION TYPE: XR abdomen 1V DATE OF EXAM: 10/30/2021 COMPARISON: NONE HISTORY: Left upper quadrant pain TECHNIQUE: 2 views supine FINDINGS: No evidence of intestinal obstruction or pneumoperitoneum. Fecal pattern is normal. There a re clips from cholecystectomy. There is vascular calcification. IMPRESSION: Nonacute abdomen. Minimal pleural fluid or reaction at the lateral left lung base.
[2021-10-31] MEDS: SODIUM CHLORIDE 0.9% 1,000 ML IV SCH ×4 (02:00→20:13)
[2021-10-31 05:41] LABS: Glucose,Whole Blood 216 mg/dL (75-99)
[2021-10-31] MEDS: carvediloL 3.125 MG TAB PO SCH ×2 (06:45→17:10)
[2021-10-31] MEDS: INSULIN ASPART (NovoLOG) 100 UNIT/ML VIAL SQ PRN ×3 (06:46→20:12)
[2021-10-31] MEDS: amLODIPine 5 MG TAB PO SCH (08:20)
[2021-10-31] MEDS: PANTOPRAZOLE 40 MG/10 ML VIAL IV SCH (08:20)
[2021-10-31] MEDS: APIXABAN 2.5 MG TABLET PO SCH ×2 (08:20→20:12)
[2021-10-31] MEDS: AMIODARONE 200 MG TAB PO SCH (08:20)
[2021-10-31] MEDS: TAMSULOSIN 0.4 MG CAP.ER.24H PO SCH (08:20)
[2021-10-31] MEDS: ATORVASTATIN 20 MG TAB PO SCH (08:20)
[2021-10-31 08:30] LABS: Basophils % (A) 0 %; Eosinophils % (A) 0 %; HCT 42.2 % (39.0-53.0); HGB 12.9 gm/dL (13.0-17.5); Hypochromasia Moderate; Lymphocytes # (A) 0.8 k/uL (1.0-4.8); Lymphocytes % (A) 7 %; MCH 29.8 pg (25.0-35.0); MCHC 30.5 g/dL (31.0-37.0); MCV 97.8 fL (80.0-100.0); Mean Platelet Volume 12.2; Monocytes # (A) 0.5 k/uL (0-1.0); Monocytes % (A) 4 %; Neutrophils % (A) 87 %; RBC 4.32 m/uL (4.30-5.90); RDW 14.1 % (11.5-15.5); WBC 11.5 k/uL (3.8-10.6)
[2021-10-31 09:06] LABS: Albumin 2.5 g/dL (3.5-5.0); Bilirubin, Delta 0.4 mg/dL (0.0-0.2); Bilirubin,Unconjugated 0.7 mg/dL (0.0-1.1); Calcium 7.7 mg/dL (8.4-10.2); Magnesium 1.8 mg/dL (1.6-2.3); Potassium 4.1 mmol/L (3.5-5.1); Total Bilirubin 1.1 mg/dL (0.2-1.3); Total Protein 5.2 g/dL (6.3-8.2)
[2021-10-31] MEDS: MORPHINE SULFATE 4 MG/ML SYRINGE IV PRN ×2 (09:08→20:12)
[2021-10-31 10:48] LABS: Large Platelets Present; Platelet Count 87 k/uL (150-450)
--- NOTE | 2021-10-31 11:49 | CA ---
Transthoracic Echo Report Name: Abhay Cooper Age: 86 Gender: M : 1935 Exam Date: 10/31/2021 09:12 Exam Location: [place] [facility] Ht (in): 72 Wt (lb): 207 Ordering Physician: Leonel Borden MD ([id number]) Attending/Referring Phys: Receivable Manager Denice Lacey RDCS Procedure CPT: Indications: LV function Cardiac Hx: Technical Quality: Fair Contrast 1: Total Dose (mL): Contrast 2: Total Dose (mL): MEASUREMENTS (Male / Female) Normal Values 2D ECHO LV Diastolic Diameter PLAX 4.6 cm 4.2 - 5.9 / 3.9 - 5.3 cm LV Systolic Diameter PLAX 3.2 cm IVS Diastolic Thickness 1.6 cm 0.6 - 1.0 / 0.6 - 0.9 cm LVPW Diastolic Thickness 1.4 cm 0.6 - 1.0 / 0.6 - 0.9 cm LV Relative Wall Thickness 0.7 RV Internal Dim ED PLAX 3.5 cm LVOT Diameter 2.2 cm LA Systolic Diameter LX 3.8 cm 3.0 - 4.0 / 2.7 - 3.8 cm LA Volume 59.5 cm??? 18 - 58 / 22 - 52 cm??? M-MODE Aortic Root Diameter MM 3.7 cm MV E Point Septal Separation 0.6 cm AV Cusp Separation MM 1.7 cm DOPPLER AV Peak Velocity 153.4 cm/s AV Peak Gradient 9.4 mmHg MV Area PHT 3.3 cm??? MV Deceleration Time 232.8 ms TR Peak Velocity 290.4 cm/s TR Peak Gradient 33.7 mmHg Right Ventricular Systolic Press 47.6 mmHg FINDINGS Left Ventricle Left ventricular ejection fraction is estimated at 55-60 %. Left ventricular cavity size normal. Moderate concentric left ventricular hypertrophy. Right Ventricle Mild right ventricular dilatation. Moderate pulmonary hypertension. Right Atrium Normal right atrial size. Left Atrium Mildly increased left atrial volume. No evidence for an atrial septal defect. Mitral Valve Structurally normal mitral valve. No mitral stenosis, regurgitation or prolapse. Aortic Valve Focal thickening of the aortic valve cusps. No aortic valve stenosis or regurgitation. Tricuspid Valve Mild tricuspid regurgitation. Pulmonic Valve [id number] pulmonic regurgitation. Pericardium No pericardial effusion. Aorta Normal size aortic root and proximal ascending aorta. CONCLUSIONS Normal LV systolic function moderate pulmonary hypertension with an RV systolic pressure of 55-60 mm mild tricuspid regurgitation Previewed by: Dr. Nahid Andrade MD (Electronically Signed) Final Date: 31 Oct 2021 11:48
[2021-10-31 12:08] LABS: Glucose,Whole Blood 251 mg/dL (75-99)
--- NOTE | 2021-10-31 14:55 | P.PN ---
Subjective This is an 86-year-old gentleman with a past medical history significant for persistent atrial fibrillation s/p cardioversion 3 times (last cardioversion 4 years ago per ), currently on Eliquis and amiodarone Type 2 diabetes, hypertension, dyslipidemia and chronic kidney disease. He used to follow with a supervisor char house In [place] (Just moved from [place] in April 2021, has not established a new supervisor char house). We consulted to see the patient because of abnormal cardiac enzymes. The patient somewhat is a poor historian. He was very weak lately and apparently he fell on the floor and it was very hard for him to get up. Normally he is very active physically. His try to get him up but she was unable. Ambulance was called and the patient was brought to the emergency department. He underwent a workup including cardiac enzymes came in to be abnormal but the EKG showed atrial fibrillation with diffuse nonspecific ST and T wave abnormalities. He underwent also a chest x-ray which showed left pleural effusion and pulmonary was consulted to see the patient. Also the patient was found to be in renal failure with a creatinine of 1.83. Also he underwent urinalysis which showed possible bacteriuria and possible UTI. WBC was mildly elevated. There is also a concern regarding possible urinary obstruction because Gutierrez catheter was placed by urology. Spoke with patient's , patient has a history of atrial fibrillation, he has gone into H fibrillation with RVR 3 times and has been cardioverted in the past. She states his last episode of atrial fibrillation was about 4 years ago in [place]. Patient does not have his history of CAD, [place], stroke, or heart failure per . 10/31/2021 Patient seen and examined at bedside, he is alert, oriented to person and place. He denies any chest pain, palpitations, lightheadedness or dizziness. Telemetry reviewed patient in atrial fibrillation with controlled ventricular rates. Echocardiogram revealed EF 5560 percent, moderate concentric LVH, mild tricuspid regurgitation., Mild to moderate pulmonic regurgitation He's currently maintained on Eliquis 2.5 mg twice a day, amiodarone 20 mg daily, amlodipine 5 mg daily, Coreg 3.125 mg twice a day, IV antibiotics GENERAL: Well-appearing, well-nourished and in no acute distress. NECK: Supple without JVD or thyromegaly. LUNGS: Breath sounds clear to auscultation bilaterally. Respiration equal and unlabored. No wheezes, rales or rhonchi. HEART: Regular rate and rhythm without murmurs, rubs or gallops. S1 and S2 heard. EXTREMITIES: Normal range of motion, no edema. No clubbing or cyanosis. Peripheral pulses intact. ASSESSMENT Persistent Atrial fibrillation status post prior cardioversions, last one per family 4 years ago in [place], on Eliquis Altered mental status Urinary tract infection Type 2 diabetes Hypertension Dyslipidemia Acute on chronic kidney disease PLAN 2-D echocardiogram reviewed. Will continue current medication regimen. Continue cardiac telemetry. Further recommendations based on clinical course. Nurse Practitioner note has been reviewed, I agree with a documented findings and plan of care. Patient was seen and examined. Objective - Vital Signs Vital signs: Vital Signs Temp 97.8 F 10/31/21 08:00 Pulse 60 10/31/21 12:00 Resp 17 10/31/21 12:00 BP 115/66 10/31/21 12:00 Pulse Ox 94 L 10/31/21 12:00 Intake & Output 10/30/21 10/31/21 10/31/21 18:59 06:59 18:59 Intake Total 120 Output Total 750 1150 Balance -750 -1030 Intake: Oral 120 Output: Urine 750 1150 Uretheral (Gutierrez) 750 200 Other: Voiding Method Urinal Indwelling Catheter Indwelling Catheter - Labs CBC & Chem 7: 10/31/21 06:34 10/31/21 06:34 Labs: Abnormal Lab Results - Last 24 Hours (Table) 10/30/21 10/30/21 10/31/21 Range/Units 16:13 19:35 05:40 WBC (3.8-10.6) k/uL Hgb (13.0-17.5) gm/dL MCHC (31.0-37.0) g/dL Plt Count (150-450) k/uL Neutrophils # (1.3-7.7) k/uL Lymphocytes # (1.0-4.8) k/uL Sodium (137-145) mmol/L BUN (9-20) mg/dL Creatinine (0.66-1.25) mg/dL Glucose (74-99) mg/dL POC Glucose (mg/dL) 231 H 205 H 216 H (75-99) mg/dL Hemoglobin A1c (0.0-6.0) % Calcium (8.4-10.2) mg/dL Delta Bilirubin (0.0-0.2) mg/dL ALT (4-49) U/L Total Protein (6.3-8.2) g/dL Albumin (3.5-5.0) g/dL 10/31/21 10/31/21 10/31/21 Range/Units 06:34 06:34 06:34 WBC 11.5 H (3.8-10.6) k/uL Hgb 12.9 L (13.0-17.5) gm/dL MCHC 30.5 L (31.0-37.0) g/dL Plt Count 87 L (150-450) k/uL Neutrophils # 10.0 H (1.3-7.7) k/uL Lymphocytes # 0.8 L (1.0-4.8) k/uL Sodium 135 L (137-145) mmol/L BUN 57 H (9-20) mg/dL Creatinine 1.73 H (0.66-1.25) mg/dL Glucose 201 H (74-99) mg/dL POC Glucose (mg/dL) (75-99) mg/dL Hemoglobin A1c 8.0 H (0.0-6.0) % Calcium 7.7 L (8.4-10.2) mg/dL Delta Bilirubin 0.4 H (0.0-0.2) mg/dL ALT 75 H (4-49) U/L Total Protein 5.2 L (6.3-8.2) g/dL Albumin 2.5 L (3.5-5.0) g/dL 10/31/21 Range/Units 12:07 WBC (3.8-10.6) k/uL Hgb (13.0-17.5) gm/dL MCHC (31.0-37.0) g/dL Plt Count (150-450) k/uL Neutrophils # (1.3-7.7) k/uL Lymphocytes # (1.0-4.8) k/uL Sodium (137-145) mmol/L BUN (9-20) mg/dL Creatinine (0.66-1.25) mg/dL Glucose (74-99) mg/dL POC Glucose (mg/dL) 251 H (75-99) mg/dL Hemoglobin A1c (0.0-6.0) % Calcium (8.4-10.2) mg/dL Delta Bilirubin (0.0-0.2) mg/dL ALT (4-49) U/L Total Protein (6.3-8.2) g/dL Albumin (3.5-5.0) g/dL Microbiology - Last 24 Hours (Table) 10/29/21 05:57 Urine Culture - Final Urine,Voided 10/29/21 12:59 Blood Culture - Preliminary Blood No Growth after 24 hours 10/29/21 12:48 Blood Culture - Preliminary Blood No Growth after 24 hours
[2021-10-31 16:45] LABS: Glucose,Whole Blood 243 mg/dL (75-99)
--- NOTE | 2021-10-31 19:03 | P.PN ---
Subjective 86-year-old white male, known history of chronic atrial fibrillation, type 2 diabetes, found by his at the edge of the bed extremely weak, and unable to get up on his own. According to the the patient is normally active and he is usually up and about. She tried to get him off the floor and back to the bed, however she couldn't do that. EMS was called, and on arrival the patient was basically very weak, at the edge of the bed, and his blood sugar was in the 300s range. Patient was brought into the ER, he had no symptoms of shortness of breath whatsoever. Chest x-ray showed a small tiny left pleural effusion, normal x-rays for comparison, it is probably an old effusion, and it is not large enough to consider any thoracentesis; urinalysis is consistent with pyuria and bacteriuria, and most likely the patient has underlying urinary tract infection. His also noticed hematuria over the last couple of days. In the ER, WBC count of 14.7. And he had abnormal renal profile with a BUN of 43 creatinine of 1.83, however according to the this is chronic and the patient is usually followed by a odd ticket clerk on a regular basis. His troponin was a bit elevated and again his urinalysis showed hematuria, active urea, polyuria, and positive leukocyte esterase after evaluating the patient in the ER, I felt that the patient had no significant pulmonary symptoms except for the small tiny left pleural effusion with elevated BNP most likely secondary to chronic diastolic congestive heart failure Patient had episode of urinary retention yesterday; Gutierrez catheter could not be placed; urology is consulted for hematuria and incomplete emptying; Gutierrez catheter in place now and urology recommending to continue with catheter for several days; continue with IV Rocephin to final urine culture results are available; Ultimately, he would be best served undergoing a circumcision (or at least a dorsal slit) with meatotomy and/or internal ureterotomy Cardiology on board and recommending medical management for mild elevation in troponin 10/31/2021 Patient was admitted with severe generalized weakness secondary to UTI and urinary retention, his been evaluated by urologist and placed on Gutierrez catheter. Also he was started on ceftriaxone for UTI. Urine culture is negative. Leukocytosis is improving. We will repeat urine analysis. Patient is afebrile. Also supervisor fleshing on the case for A. fib and RVR and high troponin. Currently rate controlled and continued on Eliquis 2.5. Patient is on trulicity and Lantus 20 units at bedtime at home. We started him on Levemir 7 units daily here. Patient will need subacute rehab upon discharge Objective - Vital Signs Vital signs: Vital Signs Temp 97.8 F 10/31/21 08:00 Pulse 60 10/31/21 12:00 Resp 17 10/31/21 12:00 BP 115/66 10/31/21 12:00 Pulse Ox 94 L 10/31/21 12:00 Intake & Output 10/30/21 10/31/21 10/31/21 18:59 06:59 18:59 Intake Total 120 Output Total 750 1150 Balance -750 -1030 Intake: Oral 120 Output: Urine 750 1150 Uretheral (Gutierrez) 750 200 Other: Voiding Method Urinal Indwelling Catheter Indwelling Catheter - Exam -GENERAL: The patient is alert and oriented not in any acute distress. Well developed, well nourished. General weakness HEENT: Pupils are round and equally reacting to light. EOMI. No scleral icterus. No conjunctival pallor. Normocephalic, atraumatic. No pharyngeal erythema. No thyromegaly. CARDIOVASCULAR: S1 and S2 present. No murmurs, rubs, or gallops. PULMONARY: Chest is clear to auscultation, no wheezing or crackles. -ABDOMEN: Soft, nontender, nondistended, normoactive bowel sounds. No palpable organomegaly. Gutierrez catheter is in place MUSCULOSKELETAL: No joint swelling or deformity. EXTREMITIES: No cyanosis, clubbing, or pedal edema. NEUROLOGICAL: Gross neurological examination did not reveal any focal deficits. SKIN: No rashes. no petechiae. - Labs CBC & Chem 7: 10/31/21 06:34 10/31/21 06:34 Labs: Abnormal Lab Results - Last 24 Hours (Table) 10/30/21 10/30/21 10/31/21 Range/Units 16:13 19:35 05:40 WBC (3.8-10.6) k/uL Hgb (13.0-17.5) gm/dL MCHC (31.0-37.0) g/dL Plt Count (150-450) k/uL Neutrophils # (1.3-7.7) k/uL Lymphocytes # (1.0-4.8) k/uL Sodium (137-145) mmol/L BUN (9-20) mg/dL Creatinine (0.66-1.25) mg/dL Glucose (74-99) mg/dL POC Glucose (mg/dL) 231 H 205 H 216 H (75-99) mg/dL Hemoglobin A1c (0.0-6.0) % Calcium (8.4-10.2) mg/dL Delta Bilirubin (0.0-0.2) mg/dL ALT (4-49) U/L Total Protein (6.3-8.2) g/dL Albumin (3.5-5.0) g/dL 10/31/21 10/31/21 10/31/21 Range/Units 06:34 06:34 06:34 WBC 11.5 H (3.8-10.6) k/uL Hgb 12.9 L (13.0-17.5) gm/dL MCHC 30.5 L (31.0-37.0) g/dL Plt Count 87 L (150-450) k/uL Neutrophils # 10.0 H (1.3-7.7) k/uL Lymphocytes # 0.8 L (1.0-4.8) k/uL Sodium 135 L (137-145) mmol/L BUN 57 H (9-20) mg/dL Creatinine 1.73 H (0.66-1.25) mg/dL Glucose 201 H (74-99) mg/dL POC Glucose (mg/dL) (75-99) mg/dL Hemoglobin A1c 8.0 H (0.0-6.0) % Calcium 7.7 L (8.4-10.2) mg/dL Delta Bilirubin 0.4 H (0.0-0.2) mg/dL ALT 75 H (4-49) U/L Total Protein 5.2 L (6.3-8.2) g/dL Albumin 2.5 L (3.5-5.0) g/dL 10/31/21 Range/Units 12:07 WBC (3.8-10.6) k/uL Hgb (13.0-17.5) gm/dL MCHC (31.0-37.0) g/dL Plt Count (150-450) k/uL Neutrophils # (1.3-7.7) k/uL Lymphocytes # (1.0-4.8) k/uL Sodium (137-145) mmol/L BUN (9-20) mg/dL Creatinine (0.66-1.25) mg/dL Glucose (74-99) mg/dL POC Glucose (mg/dL) 251 H (75-99) mg/dL Hemoglobin A1c (0.0-6.0) % Calcium (8.4-10.2) mg/dL Delta Bilirubin (0.0-0.2) mg/dL ALT (4-49) U/L Total Protein (6.3-8.2) g/dL Albumin (3.5-5.0) g/dL Microbiology - Last 24 Hours (Table) 10/29/21 05:57 Urine Culture - Final Urine,Voided 10/29/21 12:59 Blood Culture - Preliminary Blood No Growth after 24 hours 10/29/21 12:48 Blood Culture - Preliminary Blood No Growth after 24 hours Assessment and Plan Assessment: Acute urinary tract infection Urinary retention status post Gutierrez catheter placement Acute coronary injury versus worsening chronic kidney disease stage III Elevated troponin, secondary to renal disease Permanent atrial fibrillation, controlled rate. On Eliquis. Generalized weakness and deconditioning, secondary to above This is a pleasant 86 years old male with UTI, urinary retention and A. fib. Continue with ceftriaxone, repeat urine analysis Urologist on the case. Continue with Gutierrez catheter. Follow up as an outpatient. Start Levemir 7 units and ISS. Hand Sewer Shoes on the case. Labs and medication were reviewed.. Continue same treatment. Continue with sym ptomatic treatment. Resume home medication. Monitor lytes and vitals. DVT and GI prophylaxis. Further recommendationsas per clinical course of the patient DVT prophylaxis: Eliquis GI Prophylaxis: Ppi PT/OT: KENTRELL Prognosis is guarded
[2021-10-31 19:29] LABS: Glucose,Whole Blood 316 mg/dL (75-99)
[2021-10-31] MEDS: INSULIN DETEMIR (LEVEMIR) 100 UNIT/ML SYR SQ SCH (20:23)
[2021-11-01 04:44] LABS: Appearance,Urine Turbid (Clear); Bacteria,Urine Few /hpf; Bilirubin,Urine Negative (Negative); Blood,Urine Large (Negative); Budding Yeast,Urine Occasional /hpf; Color,Urine Yellow; Glucose,Urine (UA) Negative (Negative); Hyaline Casts,Urine 11 /lpf (0-2); Ketones,Urine Negative (Negative); Leukocyte Esterase,Urine Large (Negative); Mucus,Urine Rare /hpf; Nitrite,Urine Negative (Negative); PH, Urine 5.5 (5.0-8.0); Protein,Urine 2+ (Negative); RBC,Urine 127 /hpf (0-5); Specific Gravity,Urine 1.019 (1.001-1.035); Urobilinogen,Urine <2.0 mg/dL (<2.0); WBC,Urine >182 /hpf (0-5)
[2021-11-01 06:13] LABS: Glucose,Whole Blood 123 mg/dL (75-99)
[2021-11-01] MEDS: INSULIN DETEMIR (LEVEMIR) 100 UNIT/ML SYR SQ SCH (06:50)
[2021-11-01] MEDS: carvediloL 3.125 MG TAB PO SCH ×2 (06:50→18:02)
[2021-11-01 08:08] LABS: Calcium 7.7 mg/dL (8.4-10.2); Potassium 3.8 mmol/L (3.5-5.1)
[2021-11-01] MEDS: PANTOPRAZOLE 40 MG/10 ML VIAL IV SCH (09:55)
[2021-11-01] MEDS: ATORVASTATIN 20 MG TAB PO SCH (09:56)
[2021-11-01] MEDS: TAMSULOSIN 0.4 MG CAP.ER.24H PO SCH (09:56)
[2021-11-01] MEDS: AMIODARONE 200 MG TAB PO SCH (09:56)
[2021-11-01] MEDS: APIXABAN 2.5 MG TABLET PO SCH ×2 (09:56→21:19)
[2021-11-01] MEDS: amLODIPine 5 MG TAB PO SCH (09:56)
--- NOTE | 2021-11-01 10:55 | P.PN ---
Subjective This is an 86-year-old gentleman with a past medical history significant for persistent atrial fibrillation s/p cardioversion 3 times (last cardioversion 4 years ago per ), currently on Eliquis and amiodarone Type 2 diabetes, hypertension, dyslipidemia and chronic kidney disease. He used to follow with a patient financial counselor In [place] (Just moved from [place] in April 2021, has not established a new patient financial counselor). We consulted to see the patient because of abnormal cardiac enzymes. The patient somewhat is a poor historian. He was very weak lately and apparently he fell on the floor and it was very hard for him to get up. Normally he is very active physically. His try to get him up but she was unable. Ambulance was called and the patient was brought to the emergency department. He underwent a workup including cardiac enzymes came in to be abnormal but the EKG showed atrial fibrillation with diffuse nonspecific ST and T wave abnormalities. He underwent also a chest x-ray which showed left pleural effusion and pulmonary was consulted to see the patient. Also the patient was found to be in renal failure with a creatinine of 1.83. Also he underwent urinalysis which showed possible bacteriuria and possible UTI. WBC was mildly elevated. There is also a concern regarding possible urinary obstruction because Gutierrez catheter was placed by urology. Spoke with patient's , patient has a history of atrial fibrillation, he has gone into H fibrillation with RVR 3 times and has been cardioverted in the past. She states his last episode of atrial fibrillation was about 4 years ago in [place]. Patient does not have his history of CAD, AK, stroke, or heart failure per . 11/01/2021 Patient seen and examined at bedside, he is alert, oriented to person and place. He denies any chest pain, palpitations, lightheadedness or dizziness. Vital signs are stable. Telemetry reviewed patient in atrial fibrillation with controlled ventricular rates. Echocardiogram revealed EF 5560%, moderate concentric LVH, mild tricuspid regurgitation., Mild to moderate pulmonic regurgitation He's currently maintained on Eliquis 2.5 mg twice a day, amiodarone 20 mg daily, amlodipine 5 mg daily, Coreg 3.125 mg twice a day, IV antibiotics GENERAL: In no acute distress. NECK: Supple without JVD or thyromegaly. LUNGS: Breath sounds diminished in bases to auscultation bilaterally. Respiration equal and unlabored. No wheezes, rales or rhonchi. HEART: Irregular rate and rhythm without murmurs, rubs or gallops. S1 and S2 heard. EXTREMITIES: Normal range of motion,1+ bilateral lower extremity edema. No clubbing or cyanosis. Peripheral pulses intact. ASSESSMENT Persistent Atrial fibrillation status post prior cardioversions, last one per family 4 years ago in [place], [id number] score 4, on Eliquis Altered mental status Urinary tract infection Type 2 diabetes Hypertension Dyslipidemia Acute on chronic kidney disease PLAN Will continue current medication regimen with amiodarone 200mg daily, amlodipine 5mg daily, statin, Coreg 3.125mg BID Continue anticoagulation with Eliquis From cardiology perspective, no further inpatient workup at this time. Recommend follow up outpatient with Dr. Borden once medically cleared for discharge. Nurse Practitioner note has been reviewed, I agree with a documented findings and plan of care. Patient was seen and examined. Objective - Vital Signs Vital signs: Vital Signs Temp 97.6 F 11/01/21 04:05 Pulse 65 11/01/21 04:05 Resp 18 11/01/21 04:05 BP 119/78 11/01/21 04:05 Pulse Ox 97 11/01/21 04:05 Intake & Output 10/31/21 11/01/21 11/01/21 18:59 06:59 18:59 Intake Total 180 Output Total 500 550 Balance -500 -550 180 Intake: Oral 180 Output: Urine 500 550 Other: Voiding Method Indwelling Catheter Indwelling Catheter # Bowel Movements 1 - Labs CBC & Chem 7: 10/31/21 06:34 11/01/21 06:08 Labs: Abnormal Lab Results - Last 24 Hours (Table) 10/31/21 10/31/21 10/31/21 Range/Units 12:07 16:43 19:27 Sodium (137-145) mmol/L BUN (9-20) mg/dL Creatinine (0.66-1.25) mg/dL Glucose (74-99) mg/dL POC Glucose (mg/dL) 251 H 243 H 316 H (75-99) mg/dL Calcium (8.4-10.2) mg/dL Urine Protein (Negative) Urine Blood (Negative) Ur Leukocyte Esterase (Negative) Urine RBC (0-5) /hpf Urine WBC (0-5) /hpf Urine WBC Clumps (None) /hpf Urine Bacteria (None) /hpf Hyaline Casts (0-2) /lpf Urine Mucus (None) /hpf Urine Yeast (Budding) (None) /hpf 11/01/21 11/01/21 11/01/21 Range/Units 04:00 06:01 06:08 Sodium 134 L (137-145) mmol/L BUN 59 H (9-20) mg/dL Creatinine 1.44 H (0.66-1.25) mg/dL Glucose 105 H (74-99) mg/dL POC Glucose (mg/dL) 123 H (75-99) mg/dL Calcium 7.7 L (8.4-10.2) mg/dL Urine Protein 2+ H (Negative) Urine Blood Large H (Negative) Ur Leukocyte Esterase Large H (Negative) Urine RBC 127 H (0-5) /hpf Urine WBC >182 H (0-5) /hpf Urine WBC Clumps Many H (None) /hpf Urine Bacteria Few H (None) /hpf Hyaline Casts 11 H (0-2) /lpf Urine Mucus Rare H (None) /hpf Urine Yeast (Budding) Occasional H (None) /hpf Microbiology - Last 24 Hours (Table) 10/29/21 12:48 Blood Culture - Preliminary Blood No Growth after 48 hours 10/29/21 12:59 Blood Culture - Preliminary Blood No Growth after 48 hours 10/29/21 05:57 Urine Culture - Final Urine,Voided
[2021-11-01 11:44] LABS: Glucose,Whole Blood 182 mg/dL (75-99)
[2021-11-01 16:56] LABS: Glucose,Whole Blood 249 mg/dL (75-99)
[2021-11-01] MEDS: SODIUM CHLORIDE 0.9% 1,000 ML IV SCH (18:02)
--- NOTE | 2021-11-01 18:51 | P.PN ---
Subjective 86-year-old white male, known history of chronic atrial fibrillation, type 2 diabetes, found by his at the edge of the bed extremely weak, and unable to get up on his own. According to the the patient is normally active and he is usually up and about. She tried to get him off the floor and back to the bed, however she couldn't do that. EMS was called, and on arrival the patient was basically very weak, at the edge of the bed, and his blood sugar was in the 300s range. Patient was brought into the ER, he had no symptoms of shortness of breath whatsoever. Chest x-ray showed a small tiny left pleural effusion, normal x-rays for comparison, it is probably an old effusion, and it is not large enough to consider any thoracentesis; urinalysis is consistent with pyuria and bacteriuria, and most likely the patient has underlying urinary tract infection. His also noticed hematuria over the last couple of days. In the ER, WBC count of 14.7. And he had abnormal renal profile with a BUN of 43 creatinine of 1.83, however according to the this is chronic and the patient is usually followed by a lockstitch cup setter on a regular basis. His troponin was a bit elevated and again his urinalysis showed hematuria, active urea, polyuria, and positive leukocyte esterase after evaluating the patient in the ER, I felt that the patient had no significant pulmonary symptoms except for the small tiny left pleural effusion with elevated BNP most likely secondary to chronic diastolic congestive heart failure Patient had episode of urinary retention yesterday; Gutierrez catheter could not be placed; urology is consulted for hematuria and incomplete emptying; Gutierrez catheter in place now and urology recommending to continue with catheter for several days; continue with IV Rocephin to final urine culture results are available; Ultimately, he would be best served undergoing a circumcision (or at least a dorsal slit) with meatotomy and/or internal ureterotomy Cardiology on board and recommending medical management for mild elevation in troponin 10/31/2021 Patient was admitted with severe generalized weakness secondary to UTI and urinary retention, his been evaluated by urologist and placed on Gutierrez catheter. Also he was started on ceftriaxone for UTI. Urine culture is negative. Leukocytosis is improving. We will repeat urine analysis. Patient is afebrile. Also government gauger on the case for A. fib and RVR and high troponin. Currently rate controlled and continued on Eliquis 2.5. Patient is on trulicity and Lantus 20 units at bedtime at home. We started him on Levemir 7 units daily here. Patient will need subacute rehab upon discharge 11/02/2011 Patient still a generally weak although he is improving as he reports to me today. Physical therapy recommended subacute rehab, social psychologist consulted Repeat urine analysis is still abnormal, patient remains on ceftriaxone. ID team consulted today. Remains in Gutierrez catheter with urology evaluated the patient recommendation to follow up as an outpatient. Also patient is slightly tachypneic today so we'll check chest x-ray. He was hypoxic 75% on room air. Diet 50% Objective - Vital Signs Vital signs: Vital Signs Temp 96.4 F L 11/01/21 08:00 Pulse 73 11/01/21 08:00 Resp 18 11/01/21 08:00 BP 144/73 11/01/21 08:00 Pulse Ox 96 11/01/21 08:00 Intake & Output 10/31/21 11/01/21 11/01/21 18:59 06:59 18:59 Intake Total 180 Output Total 500 550 Balance -500 -550 180 Intake: Oral 180 Output: Urine 500 550 Other: Voiding Method Indwelling Catheter Indwelling Catheter Indwelling Catheter # Bowel Movements 1 - Exam -GENERAL: The patient is alert and oriented not in any acute distress. Well developed, well nourished. General weakness HEENT: Pupils are round and equally reacting to light. EOMI. No scleral icterus. No conjunctival pallor. Normocephalic, atraumatic. No pharyngeal erythema. No thyromegaly. CARDIOVASCULAR: S1 and S2 present. No murmurs, rubs, or gallops. PULMONARY: Chest is clear to auscultation, no wheezing or crackles. -ABDOMEN: Soft, nontender, nondistended, normoactive bowel sounds. No palpable organomegaly. Gutierrez catheter is in place MUSCULOSKELETAL: No joint swelling or deformity. EXTREMITIES: No cyanosis, clubbing, or pedal edema. NEUROLOGICAL: Gross neurological examination did not reveal any focal deficits. SKIN: No rashes. no petechiae. - Labs CBC & Chem 7: 10/31/21 06:34 11/01/21 06:08 Labs: Abnormal Lab Results - Last 24 Hours (Table) 10/31/21 10/31/21 11/01/21 Range/Units 16:43 19:27 04:00 Sodium (137-145) mmol/L BUN (9-20) mg/dL Creatinine (0.66-1.25) mg/dL Glucose (74-99) mg/dL POC Glucose (mg/dL) 243 H 316 H (75-99) mg/dL Calcium (8.4-10.2) mg/dL Urine Protein 2+ H (Negative) Urine Blood Large H (Negative) Ur Leukocyte Esterase Large H (Negative) Urine RBC 127 H (0-5) /hpf Urine WBC >182 H (0-5) /hpf Urine WBC Clumps Many H (None) /hpf Urine Bacteria Few H (None) /hpf Hyaline Casts 11 H (0-2) /lpf Urine Mucus Rare H (None) /hpf Urine Yeast (Budding) Occasional H (None) /hpf 11/01/21 11/01/21 11/01/21 Range/Units 06:01 06:08 11:41 Sodium 134 L (137-145) mmol/L BUN 59 H (9-20) mg/dL Creatinine 1.44 H (0.66-1.25) mg/dL Glucose 105 H (74-99) mg/dL POC Glucose (mg/dL) 123 H 182 H (75-99) mg/dL Calcium 7.7 L (8.4-10.2) mg/dL Urine Protein (Negative) Urine Blood (Negative) Ur Leukocyte Esterase (Negative) Urine RBC (0-5) /hpf Urine WBC (0-5) /hpf Urine WBC Clumps (None) /hpf Urine Bacteria (None) /hpf Hyaline Casts (0-2) /lpf Urine Mucus (None) /hpf Urine Yeast (Budding) (None) /hpf Microbiology - Last 24 Hours (Table) 10/29/21 12:48 Blood Culture - Preliminary Blood No Growth after 48 hours 10/29/21 12:59 Blood Culture - Preliminary Blood No Growth after 48 hours 10/29/21 05:57 Urine Culture - Final Urine,Voided Assessment and Plan Assessment: Acute urinary tract infection Urinary retention status post Gutierrez catheter placement Acute coronary injury versus worsening chronic kidney disease stage III Elevated troponin, secondary to renal disease Permanent atrial fibrillation, controlled rate. On Eliquis. Generalized weakness and deconditioning, secondary to above Plan: This is a pleasant 86 years old male with UTI, urinary retention and A. fib. Continue with ceftriaxone, repeat urine analysis Urologist on the case. Continue with Gutierrez catheter. Follow up as an outpatient. Start Levemir 7 units and ISS. Head Mixer on the case. Labs and medication were reviewed.. Continue same treatment. Continue with symptomatic treatment. Resume home medication. Monitor lytes and vitals. DVT and GI prophylaxis. Further recommendationsas per clinical course of the patient DVT prophylaxis: Eliquis GI Prophylaxis: Ppi PT/OT: KENTRELL Prognosis is guarded
[2021-11-01] MEDS ORDERED: INSULIN DETEMIR (LEVEMIR) 100 UNIT/ML SYR SQ ONE (19:30)
--- NOTE | 2021-11-01 20:10 | XR ---
EXAMINATION TYPE: XR chest 1V DATE OF EXAM: 11/01/2021 COMPARISON: 10/29/2021 HISTORY: Short of breath TECHNIQUE: FINDINGS: Heart size is normal. Heart appears deviated to the left side. There is some blunting of th e left costophrenic angle. No heart failure seen. There is coarsening of interstitial markings. No pn eumothorax. IMPRESSION: There is apparent volume loss in the left hemithorax compared to old exam and could relat e to developing atelectasis. No heart failure seen.
[2021-11-01 21:18] LABS: Glucose,Whole Blood 289 mg/dL (75-99)
[2021-11-01] MEDS: INSULIN ASPART (NovoLOG) 100 UNIT/ML VIAL SQ PRN (21:20)
[2021-11-02 06:10] LABS: Glucose,Whole Blood 112 mg/dL (75-99)
[2021-11-02] MEDS: carvediloL 3.125 MG TAB PO SCH ×2 (06:46→17:43)
[2021-11-02] MEDS: INSULIN DETEMIR (LEVEMIR) 100 UNIT/ML SYR SQ SCH (06:47)
--- NOTE | 2021-11-02 07:08 | P.CONS ---
History of Present Illness - Reason for Consult Consult date: 11/01/21 Urinary tract infection Requesting physician: Jt E Sheet - Chief Complaint weakness x 1 day - History of Present Illness Patient is 86-year-old male with a past medical he significant for atrial fibrillation therapy diabetes mellitus presenting to the hospital 2 days ago for evaluation of weakness and the patient was not able to get up on his own, the patient was not able to get him up from the floor and EMS was called on arrival of EMS the patient was weak at the edge of the bed, patient on presentation to the hospital was afebrile and no fever has been recorded subsequently patient did have a white count of 14.7 with a left shift patient did have elevated bili and creatinine levels is mildly elevated patient did have a positive UA and apparently did have evidence of hematuria blood and urine culture subsequently came back negative patient did have a chest x-ray left pleural effusion for the patient has been evaluated by urology patient was noticed to have a urinary retention nursing staff was not able to place a Gutierrez urology did place a Gutierrez and apparently did have some hematuria and seem to have resolved patient has been treated with Rocephin 1 g daily however repeat UA was still positive that has prompted this infectious disease consultation patient himself evaluated good historian so most information has been obtained from review the chart Review of Systems Positive point has been mentioned in the HPI rest of the systems are negative Past Medical History Past Medical History: Atrial Fibrillation, Diabetes Mellitus Additional Past Medical History / Comment(s): Chronic kidney disease, exact stage is unknown History of Any Multi-Drug Resistant Organisms: None Reported Past Surgical History: Cholecystectomy Smoking Status: Never smoker Past Alcohol Use History: None Reported Past Drug Use History: None Reported Medications and Allergies Home Medications Medication Instructions Recorded Confirmed Type Alfuzosin HCl [Alfuzosin HCl ER] 10 mg PO DAILY 10/29/21 10/29/21 History Amiodarone HCl [Pacerone] 200 mg PO DAILY 10/29/21 10/29/21 History Apixaban [Eliquis] 2.5 mg PO BID 10/29/21 10/29/21 History Ascorbic Acid [Vitamin C] 1,000 mg PO DAILY 10/29/21 10/29/21 History Atorvastatin [Lipitor] 20 mg PO DAILY 10/29/21 10/29/21 History Carvedilol [Coreg] 3.125 mg PO BID-W/MEALS 10/29/21 10/29/21 History Cbd Gummy 1 tab PO DAILY 10/29/21 10/29/21 History Cholecalciferol [Vitamin D3 (25 50 mcg PO DAILY 10/29/21 10/29/21 History Mcg = 1000 Iu)] Cyanocobalamin (Vitamin B-12) 1,000 mcg PO DAILY 10/29/21 10/29/21 History [Vitamin B-12] Dulaglutide [Trulicity] 1.5 mg SQ FR 10/29/21 10/29/21 History Insulin Aspart [NovoLOG Flexpen] 4 unit SQ ACHS PRN 10/29/21 10/29/21 History Insulin Glargine,Hum.rec.anlog 20 unit SQ HS 10/29/21 10/29/21 History [Lantus Solostar Pen] Multivitamins, Thera [Multivitamin 1 tab PO DAILY 10/29/21 10/29/21 History (formulary)] SILVER sulfADIAZINE CREAM 1 applic TOPICAL DAILY PRN 10/29/21 10/29/21 History [Silvadene Cream] Zinc 50 mg PO DAILY 10/29/21 10/29/21 History hydroCHLOROthiazide [Hydrodiuril] 50 mg PO DAILY 10/29/21 10/29/21 History lisinopriL 40 mg PO DAILY 10/29/21 10/29/21 History Allergies Allergy/AdvReac Type Severity Reaction Status Date / Time hydromorphone [From Dilaudid] AdvReac Confusion Verified 10/29/21 11:54 Physical Exam Vitals: Vital Signs Temp Pulse Resp BP Pulse Ox 11/01/21 04:05 97.6 F 65 18 119/78 97 10/31/21 23:45 64 20 138/81 98 10/31/21 20:00 97.8 F 72 20 122/80 96 10/31/21 16:00 98.4 F 86 16 125/81 97 10/31/21 12:00 60 17 115/66 94 L Intake and Output 10/31/21 11/01/21 11/01/21 22:59 06:59 14:59 Intake Total 180 Output Total 500 550 Balance -500 -550 180 Intake: Oral 180 Output: Urine 500 550 Other: Voiding Method Indwelling Catheter Indwelling Catheter # Bowel Movements 1 GENERAL DESCRIPTION: An elderly male lying in bed, no distress. No tachypnea or accessory muscle of respiration use. HEENT: Shows Pallor , no scleral icterus. Oral mucous membrane is dry. No pharyngeal erythema or thrush NECK: Trachea central, no thyromegaly. LUNGS: Unlabored breathing. Clear to auscultation anteriorly. No wheeze or crackle. HEART: S1, S2, regular rate and rhythm. No loud murmur ABDOMEN: Soft, no tenderness , guarding or rigidity, no organomegaly EXTREMITIES: No edema of feet. SKIN: No rash, no masses palpable. NEUROLOGICAL: The patient is awake, alert, oriented x3, mood and affect normal. Results CBC & Chem 7: 10/31/21 06:34 11/01/21 06:08 Labs: Abnormal Lab Results - Last 24 Hours (Table) 10/31/21 10/31/21 10/31/21 Range/Units 06:34 06:34 12:07 Plt Count 87 L (150-450) k/uL Neutrophils # 10.0 H (1.3-7.7) k/uL Lymphocytes # 0.8 L (1.0-4.8) k/uL Sodium (137-145) mmol/L BUN (9-20) mg/dL Creatinine (0.66-1.25) mg/dL Glucose (74-99) mg/dL POC Glucose (mg/dL) 251 H (75-99) mg/dL Hemoglobin A1c 8.0 H (0.0-6.0) % Calcium (8.4-10.2) mg/dL Urine Protein (Negative) Urine Blood (Negative) Ur Leukocyte Esterase (Negative) Urine RBC (0-5) /hpf Urine WBC (0-5) /hpf Urine WBC Clumps (None) /hpf Urine Bacteria (None) /hpf Hyaline Casts (0-2) /lpf Urine Mucus (None) /hpf Urine Yeast (Budding) (None) /hpf 10/31/21 10/31/21 11/01/21 Range/Units 16:43 19:27 04:00 Plt Count (150-450) k/uL Neutrophils # (1.3-7.7) k/uL Lymphocytes # (1.0-4.8) k/uL Sodium (137-145) mmol/L BUN (9-20) mg/dL Creatinine (0.66-1.25) mg/dL Glucose (74-99) mg/dL POC Glucose (mg/dL) 243 H 316 H (75-99) mg/dL Hemoglobin A1c (0.0-6.0) % Calcium (8.4-10.2) mg/dL Urine Protein 2+ H (Negative) Urine Blood Large H (Negative) Ur Leukocyte Esterase Large H (Negative) Urine RBC 127 H (0-5) /hpf Urine WBC >182 H (0-5) /hpf Urine WBC Clumps Many H (None) /hpf Urine Bacteria Few H (None) /hpf Hyaline Casts 11 H (0-2) /lpf Urine Mucus Rare H (None) /hpf Urine Yeast (Budding) Occasional H (None) /hpf 11/01/21 11/01/21 Range/Units 06:01 06:08 Plt Count (150-450) k/uL Neutrophils # (1.3-7.7) k/uL Lymphocytes # (1.0-4.8) k/uL Sodium 134 L (137-145) mmol/L BUN 59 H (9-20) mg/dL Creatinine 1.44 H (0.66-1.25) mg/dL Glucose 105 H (74-99) mg/dL POC Glucose (mg/dL) 123 H (75-99) mg/dL Hemoglobin A1c (0.0-6.0) % Calcium 7.7 L (8.4-10.2) mg/dL Urine Protein (Negative) Urine Blood (Negative) Ur Leukocyte Esterase (Negative) Urine RBC (0-5) /hpf Urine WBC (0-5) /hpf Urine WBC Clumps (None) /hpf Urine Bacteria (None) /hpf Hyaline Casts (0-2) /lpf Urine Mucus (None) /hpf Urine Yeast (Budding) (None) /hpf Microbiology - Last 24 Hours (Table) 10/29/21 12:48 Blood Culture - Preliminary Blood No Growth after 48 hours 10/29/21 12:59 Blood Culture - Preliminary Blood No Growth after 48 hours 10/29/21 05:57 Urine Culture - Final Urine,Voided Assessment and Plan (1) UTI (urinary tract infection) Current Visit: Yes Status: Acute Code(s): N39.0 - URINARY TRACT INFECTION, S ITE NOT SPECIFIED SNOMED Code(s): 65297292 Plan: 1patient presented to hospital with generalized weakness no energy this patient did have a positive UA he did have urinary retention requiring a Gutierrez catheter placement by urology is suspicious for a symptomatic urinary tract infection likely from a enteric gram-negative pathogen initial urine culture negative. 2we will wait for the repeat urine cultures to be finalized. 3Rocephin 1 g daily to continue as white count is trending down. We will follow on clinical condition and cultures to further adjust medication if needed Thank you for this consultation will follow this patient along with you Time with Patient: Greater than 30
[2021-11-02 07:48] LABS: Calcium 7.7 mg/dL (8.4-10.2); Magnesium 1.9 mg/dL (1.6-2.3); Potassium 3.6 mmol/L (3.5-5.1)
[2021-11-02 08:28] LABS: Basophils % (A) 0 %; Eosinophils # (A) 0.4 k/uL (0-0.7); Eosinophils % (A) 4 %; HCT 41.7 % (39.0-53.0); HGB 12.8 gm/dL (13.0-17.5); Hypochromasia Slight; Lymphocytes % (A) 12 %; MCHC 30.6 g/dL (31.0-37.0); Mean Platelet Volume 13.2; Monocytes # (A) 0.7 k/uL (0-1.0); Monocytes % (A) 9 %; Neutrophils # (A) 5.8 k/uL (1.3-7.7); Neutrophils % (A) 71 %; RBC 4.25 m/uL (4.30-5.90); WBC 8.2 k/uL (3.8-10.6)
[2021-11-02 08:30] LABS: Platelet Count 84 k/uL (150-450)
[2021-11-02] MEDS: AMIODARONE 200 MG TAB PO SCH (09:46)
[2021-11-02] MEDS: PANTOPRAZOLE 40 MG/10 ML VIAL IV SCH (09:46)
[2021-11-02] MEDS: ATORVASTATIN 20 MG TAB PO SCH (09:46)
[2021-11-02] MEDS: APIXABAN 2.5 MG TABLET PO SCH ×2 (09:46→20:51)
[2021-11-02] MEDS: amLODIPine 5 MG TAB PO SCH (09:46)
[2021-11-02] MEDS: TAMSULOSIN 0.4 MG CAP.ER.24H PO SCH (09:46)
[2021-11-02 10:42] LABS: Large Platelets Present
--- NOTE | 2021-11-02 10:44 | P.PN ---
Subjective 86-year-old white male, known history of chronic atrial fibrillation, type 2 diabetes, found by his at the edge of the bed extremely weak, and unable to get up on his own. According to the the patient is normally active and he is usually up and about. She tried to get him off the floor and back to the bed, however she couldn't do that. EMS was called, and on arrival the patient was basically very weak, at the edge of the bed, and his blood sugar was in the 300s range. Patient was brought into the ER, he had no symptoms of shortness of breath whatsoever. Chest x-ray showed a small tiny left pleural effusion, normal x-rays for comparison, it is probably an old effusion, and it is not large enough to consider any thoracentesis; urinalysis is consistent with pyuria and bacteriuria, and most likely the patient has underlying urinary tract infection. His also noticed hematuria over the last couple of days. In the ER, WBC count of 14.7. And he had abnormal renal profile with a BUN of 43 creatinine of 1.83, however according to the this is chronic and the patient is usually followed by a production weigher on a regular basis. His troponin was a bit elevated and again his urinalysis showed hematuria, active urea, polyuria, and positive leukocyte esterase after evaluating the patient in the ER, I felt that the patient had no significant pulmonary symptoms except for the small tiny left pleural effusion with elevated BNP most likely secondary to chronic diastolic congestive heart failure Patient had episode of urinary retention yesterday; Gutierrez catheter could not be placed; urology is consulted for hematuria and incomplete emptying; Gutierrez catheter in place now and urology recommending to continue with catheter for several days; continue with IV Rocephin to final urine culture results are available; Ultimately, he would be best served undergoing a circumcision (or at least a dorsal slit) with meatotomy and/or internal ureterotomy Cardiology on board and recommending medical management for mild elevation in troponin 10/31/2021 Patient was admitted with severe generalized weakness secondary to UTI and urinary retention, his been evaluated by urologist and placed on Gutierrez catheter. Also he was started on ceftriaxone for UTI. Urine culture is negative. Leukocytosis is improving. We will repeat urine analysis. Patient is afebrile. Also hvac mechanic on the case for A. fib and RVR and high troponin. Currently rate controlled and continued on Eliquis 2.5. Patient is on trulicity and Lantus 20 units at bedtime at home. We started him on Levemir 7 units daily here. Patient will need subacute rehab upon discharge 11/02/2011 Patient still a generally weak although he is improving as he reports to me today. Physical therapy recommended subacute rehab, social work lecturer consulted Repeat urine analysis is still abnormal, patient remains on ceftriaxone. ID team consulted today. Remains in Gutierrez catheter with urology evaluated the patient recommendation to follow up as an outpatient. Also patient is slightly tachypneic today so we'll check chest x-ray. He was hypoxic 75% on room air. Diet 50% 11/03/2011 Awake and alert, his generalized weakness is improving every day slowly and gradually. His still treated for UTI, repeat urine culture is still pending. For first culture was negative. Patient currently on Rocephin and normal saline at 50 mL and on dose of Eliquis 2.5. Creatinine at baseline of 1.4. Stable. Patient yesterday was hypoxic 75% on room air, however his saturation is well- maintained and 90s while on 2 L oxygen. Repeat chest x-ray showing volume loss in the left hemithorax compared to old exam and could relate to developing atelectasis. No heart failure seen. Pulmonary already evaluated the patient Objective - Vital Signs Vital signs: Vital Signs Temp 97.6 F 11/02/21 04:15 Pulse 57 L 11/02/21 04:15 Resp 20 11/02/21 04:15 BP 134/76 11/02/21 04:15 Pulse Ox 97 11/02/21 04:15 Intake & Output 11/01/21 11/02/21 11/02/21 18:59 06:59 18:59 Intake Total 430 240 Output Total 550 850 Balance -120 -850 240 Intake: Intake, IV Titration 250 Amount Sodium Chloride 0.9% 1, 200 000 ml @ 50 mls/hr IV . Q20H [facility] Rx#:[id number] cefTRIAXone 1 gm In 50 Sodium Chloride 0.9% 50 ml @ 100 mls/hr IVPB Q24HR [facility] Rx#:[id number] Oral 180 240 Output: Urine 550 850 Other: Voiding Method Indwelling Catheter Indwelling Catheter - Exam -GENERAL: The patient is alert and oriented not in any acute distress. Well developed, well nourished. General weakness HEENT: Pupils are round and equally reacting to light. EOMI. No scleral icterus. No conjunctival pallor. Normocephalic, atraumatic. No pharyngeal erythema. No thyromegaly. CARDIOVASCULAR: S1 and S2 present. No murmurs, rubs, or gallops. PULMONARY: Chest is clear to auscultation, no wheezing or crackles. -ABDOMEN: Soft, nontender, nondistended, normoactive bowel sounds. No palpable organomegaly. Gutierrez catheter is in place MUSCULOSKELETAL: No joint swelling or deformity. EXTREMITIES: No cyanosis, clubbing, or pedal edema. NEUROLOGICAL: Gross neurological examination did not reveal any focal deficits. SKIN: No rashes. no petechiae. - Labs CBC & Chem 7: 11/02/21 05:43 11/02/21 05:43 Labs: Abnormal Lab Results - Last 24 Hours (Table) 11/01/21 11/01/21 11/01/21 Range/Units 11:41 16:54 21:17 RBC (4.30-5.90) m/uL Hgb (13.0-17.5) gm/dL MCHC (31.0-37.0) g/dL Sodium (137-145) mmol/L BUN (9-20) mg/dL Creatinine (0.66-1.25) mg/dL Glucose (74-99) mg/dL POC Glucose (mg/dL) 182 H 249 H 289 H (75-99) mg/dL Calcium (8.4-10.2) mg/dL 11/02/21 11/02/21 11/02/21 Range/Units 05:43 05:43 06:08 RBC 4.25 L (4.30-5.90) m/uL Hgb 12.8 L (13.0-17.5) gm/dL MCHC 30.6 L (31.0-37.0) g/dL Sodium 135 L (137-145) mmol/L BUN 49 H (9-20) mg/dL Creatinine 1.40 H (0.66-1.25) mg/dL Glucose 109 H (74-99) mg/dL POC Glucose (mg/dL) 112 H (75-99) mg/dL Calcium 7.7 L (8.4-10.2) mg/dL Microbiology - Last 24 Hours (Table) 11/01/21 04:00 Urine Culture - Preliminary Urine,Catheterized 10/29/21 12:59 Blood Culture - Preliminary Blood No Growth after 72 hours 10/29/21 12:48 Blood Culture - Preliminary Blood No Growth after 72 hours Assessment and Plan Assessment: Acute urinary tract infection Urinary retention status post Gutierrez catheter placement Acute coronary injury versus worsening chronic kidney disease stage III Elevated troponin, secondary to renal disease Permanent atrial fibrillation, controlled rate. On Eliquis. Generalized weakness and deconditioning, secondary to above Plan: This is a pleasant 86 years old male with UTI, urinary retention and A. fib. Continue with ceftriaxone, follow-up urine culture Urologist on the case. Continue with Gutierrez catheter. Follow up as an outpatient. Start Levemir 10 units and ISS. Cardiopulmonary Physical Therapist on the case. Pulmonary consult Labs and medication were reviewed.. Continue same treatment. Continue with symptomatic treatment. Resume home medication. Monitor lytes and vitals. DVT and GI prophylaxis. Further recommendationsas per clinical course of the patient DVT prophylaxis: Eliquis GI Prophylaxis: Ppi PT/OT: KENTRELL Prognosis is guarded
[2021-11-02 11:38] LABS: Glucose,Whole Blood 309 mg/dL (75-99)
[2021-11-02] MEDS: INSULIN ASPART (NovoLOG) 100 UNIT/ML VIAL SQ PRN ×3 (12:42→20:52)
[2021-11-02 16:31] LABS: Glucose,Whole Blood 276 mg/dL (75-99)
[2021-11-02 20:12] LABS: Glucose,Whole Blood 225 mg/dL (75-99)
[2021-11-03 05:36] VITALS: RESP 20; TEMP 98.2
[2021-11-03 05:59] LABS: Glucose,Whole Blood 179 mg/dL (75-99)
[2021-11-03] MEDS: carvediloL 3.125 MG TAB PO SCH (07:06)
[2021-11-03] MEDS: INSULIN DETEMIR (LEVEMIR) 100 UNIT/ML SYR SQ SCH (07:06)
--- NOTE | 2021-11-03 07:17 | P.PN ---
Subjective Progress Note Date: 11/02/21 Principal diagnosis: Urinary tract infection Patient is 86 year old male presented to hospital for evaluation of weakness in this patient noticed to have elevated white count also with elevated creatinine positive UA concerning for UTI for the catheter has to be inserted for retention by urology. On today's evaluation that is 11/02/2021, the patient denies having any fever or any chills he is breathing comfortably no chest pain shortness of breath or cough no abdominal pain or diarrhea Objective - Vital Signs Vital signs: Vital Signs Temp 97.6 F 11/02/21 08:00 Pulse 80 11/02/21 08:00 Resp 20 11/02/21 08:00 BP 157/73 11/02/21 08:00 Pulse Ox 99 11/02/21 08:00 Intake & Output 11/01/21 11/02/21 11/02/21 18:59 06:59 18:59 Intake Total 430 240 Output Total 550 850 Balance -120 -850 240 Intake: Intake, IV Titration 250 Amount Sodium Chloride 0.9% 1, 200 000 ml @ 50 mls/hr IV . Q20H [facility] Rx#:[id number] cefTRIAXone 1 gm In 50 Sodium Chloride 0.9% 50 ml @ 100 mls/hr IVPB Q24HR [facility] Rx#:[id number] Oral 180 240 Output: Urine 550 850 Other: Voiding Method Indwelling Catheter Indwelling Catheter Indwelling Catheter - Exam GENERAL DESCRIPTION: An elderly male lying in bed in no distress RESPIRATORY SYSTEM: Unlabored breathing , decreased breath sounds at bases HEART: S1 S2 regular rate and rhythm , ABDOMEN: Soft , no tenderness EXTREMITIES: No edema feet - Labs CBC & Chem 7: 11/02/21 05:43 11/02/21 05:43 Labs: Abnormal Lab Results - Last 24 Hours (Table) 11/01/21 11/01/21 11/02/21 Range/Units 16:54 21:17 05:43 RBC 4.25 L (4.30-5.90) m/uL Hgb 12.8 L (13.0-17.5) gm/dL MCHC 30.6 L (31.0-37.0) g/dL Plt Count 84 L (150-450) k/uL Sodium (137-145) mmol/L BUN (9-20) mg/dL Creatinine (0.66-1.25) mg/dL Glucose (74-99) mg/dL POC Glucose (mg/dL) 249 H 289 H (75-99) mg/dL Calcium (8.4-10.2) mg/dL 11/02/21 11/02/21 11/02/21 Range/Units 05:43 06:08 11:35 RBC (4.30-5.90) m/uL Hgb (13.0-17.5) gm/dL MCHC (31.0-37.0) g/dL Plt Count (150-450) k/uL Sodium 135 L (137-145) mmol/L BUN 49 H (9-20) mg/dL Creatinine 1.40 H (0.66-1.25) mg/dL Glucose 109 H (74-99) mg/dL POC Glucose (mg/dL) 112 H 309 H (75-99) mg/dL Calcium 7.7 L (8.4-10.2) mg/dL Microbiology - Last 24 Hours (Table) 11/01/21 04:00 Urine Culture - Preliminary Urine,Catheterized 10/29/21 12:59 Blood Culture - Preliminary Blood No Growth after 72 hours 10/29/21 12:48 Blood Culture - Preliminary Blood No Growth after 72 hours Assessment and Plan (1) UTI (urinary tract infection) Current Visit: Yes Status: Acute Code(s): N39.0 - URINARY TRACT INFECTION, SITE NOT SPECIFIED SNOMED Code(s): 03962160 Plan: 1patient presented to hospital with generalized weakness no energy this patient did have a positive UA he did have urinary retention requiring a Gutierrez catheter placement by urology is suspicious for a symptomatic urinary tract infection likely from a enteric gram-negative pathogen initial urine culture negative. 2we will wait for the repeat urine cultures to be finalized. 3patient to continue with Rocephin 1 g daily as white count has normalized with the current antibiotic Time with Patient: Less than 30
[2021-11-03] MEDS: TAMSULOSIN 0.4 MG CAP.ER.24H PO SCH (08:47)
[2021-11-03] MEDS: PANTOPRAZOLE 40 MG/10 ML VIAL IV SCH (08:47)
[2021-11-03] MEDS: ATORVASTATIN 20 MG TAB PO SCH (08:47)
[2021-11-03] MEDS: APIXABAN 2.5 MG TABLET PO SCH (08:47)
[2021-11-03] MEDS: amLODIPine 5 MG TAB PO SCH (08:47)
[2021-11-03] MEDS: AMIODARONE 200 MG TAB PO SCH (08:48)
[2021-11-03] MEDS ORDERED: INSULIN DETEMIR (LEVEMIR) 100 UNIT/ML SYR SQ ONE (11:00)
[2021-11-03 11:46] LABS: Glucose,Whole Blood 273 mg/dL (75-99)
[2021-11-03 12:53] VITALS: BP 163/76; PULSE 59
[2021-11-03] MEDS: INSULIN ASPART (NovoLOG) 100 UNIT/ML VIAL SQ PRN (13:04)
--- NOTE | 2021-11-03 20:00 | P.DS ---
Providers Date of admission: 10/29/21 06:11 Attending physician: Francisco Lazo Consults: 10/29/21 10:41 Consult Physician Routine Consulting Provider: Arelis Vincent Consult Reason/Comments: Hypoxia/Pleural Effusion Do you want consulting provider notified?: Yes 10/29/21 14:11 Consult Physician Routine Consulting Provider: Leonel Borden Consult Reason/Comments: elevated troponin Do you want consulting provider notified?: Yes 10/30/21 03:48 Consult Physician Urgent Consulting Provider: Iftikhar Haines Consult Reason/Comments: Hematuria; Retention Do you want consulting provider notified?: Yes, Notify in am 11/01/21 09:34 Consult Physician Urgent Consulting Provider: Sawyer Alves Consult Reason/Comments: persistant UTI Do you want consulting provider notified?: Yes Primary care physician: Physician Nonstaff Hospital Course: Diagnoses: Acute urinary tract infection Urinary retention status post Gutierrez catheter placement Acute coronary injury versus worsening chronic kidney disease stage III Elevated troponin, secondary to renal disease by deboner Permanent atrial fibrillation, controlled rate. On Eliquis. Generalized weakness and deconditioning, secondary to above, improving and patient refused rehab, he wants to go home with home care Hospital course: 86-year-old white male, known history of chronic atrial fibrillation, type 2 diabetes, found by his at the edge of the bed extremely weak, and unable to get up on his own. Patient was admitted to the inpatient status, he was found to have several medical problems including acute urinary tract infection, worsening creatinine suspicious for acute kidney injury versus worsening chronic kidney disease with evidence of urinary retention, his been evaluated by urologist, also tractor operator laser leveling and deboner saw the patient. Patient continued to improve gradually. Patient had persistent infection, for surgeon culture was negative, repeat urine culture grew dina, infectious disease team was on the case. Patient treated efficiently for his UTI and he will finish oral course with Ceftin 5 days per ID team. On the day of discharge he was fully awake and oriented, he has insight into his illness, he knows place, person and time. He is not in distress. He denies chest pain or dyspnea. No change in urine or bowel habits. No fever. regarding his diabetes management, patient Lantus dose of 20 units at home lower to 14 units per hospital glucose monitoring, he was instructed to follow up with his home dose of sharath , he confirms to me he has a glucometer and was constructed to follow and monitor glucose 4 times a day, see discharge instructions. Patient admitted with these recommendations. Patient continued with Gutierrez catheter and instructed to follow up with urologist as an outpatient and he agrees. Physical therapist recommended subacute rehab however patient was adamant to go home with home care. Risks and benefits are explained to him and he verbalized understanding including but not limited to the risk of bleeding as he is on blood thinner, he agrees with the overall plan. Patient was cleared for discharge by all consultants including neurologist, tractor operator laser leveling, deboner and infectious disease team. Problems and management plan were discussed with the patient and he verbalized understanding and acceptance Patient was found stable and can be discharged home in guarded prognosis however he needs follow-up as an outpatient. Patient was instructed to follow up with PCP within one week and patient agrees. Patient has the contact information and told me he will call by himself Patient was instructed to follow up with urologist Dr. jones in 1-2 weeks and he agrees to call and make appointment. ID with deboner Dr. Borden in one week and his dining room maid Dr. souza in 1 week and patient was to make his on upper limits by himself Physical exam -Gen: patient is a AAOx3, no distress. Mildly generally weak CVS: S1-S2, RRR, no murmur Lungs: B/L CTA, no wheezing -Abdomen: soft, no distention, no tenderness, positive bowel sounds. Gutierrez catheter is in place Extremity: no leg edema or induration neuro: Cranial nerves are grossly intact. Motor 5/5, sensation intact, gait: Stable within help of a walker at bedside Time spent more than 35 minutes Patient Condition at Discharge: Fair Plan - Discharge Summary New Discharge Prescriptions: New Cefuroxime Axetil [Ceftin] 500 mg PO BID 5 Days #10 tab Dulaglutide [Trulicity] 1.5 mg SQ WEEKLY #1 each amLODIPine [Norvasc] 5 mg PO DAILY #30 tab Continue Zinc 50 mg PO DAILY Cyanocobalamin (Vitamin B-12) [Vitamin B-12] 1,000 mcg PO DAILY Carvedilol [Coreg] 3.125 mg PO BID-W/MEALS Alfuzosin HCl [Alfuzosin HCl ER] 10 mg PO DAILY Insulin Aspart [NovoLOG Flexpen] 4 unit SQ ACHS PRN PRN Reason: BS >200 Multivitamins, Thera [Multivitamin (formulary)] 1 tab PO DAILY Cholecalciferol [Vitamin D3 (25 Mcg = 1000 Iu)] 50 mcg PO DAILY Ascorbic Acid [Vitamin C] 1,000 mg PO DAILY Amiodarone HCl [Pacerone] 200 mg PO DAILY Atorvastatin [Lipitor] 20 mg PO DAILY Apixaban [Eliquis] 2.5 mg PO BID Changed Insulin Glargine,Hum.rec.anlog [Lantus Solostar Pen] 14 unit SQ DAILY #0 Discontinued Dulaglutide [Trulicity] 1.5 mg SQ FR lisinopriL 40 mg PO DAILY hydroCHLOROthiazide [Hydrodiuril] 50 mg PO DAILY No Action SILVER sulfADIAZINE CREAM [Silvadene Cream] 1 applic TOPICAL DAILY PRN PRN Reason: bed sores Cbd Gummy 1 tab PO DAILY Discharge Medication List Alfuzosin HCl [Alfuzosin HCl ER] 10 mg PO DAILY 10/29/21 [History] Amiodarone HCl [Pacerone] 200 mg PO DAILY 10/29/21 [History] Apixaban [Eliquis] 2.5 mg PO BID 10/29/21 [History] Ascorbic Acid [Vitamin C] 1,000 mg PO DAILY 10/29/21 [History] Atorvastatin [Lipitor] 20 mg PO DAILY 10/29/21 [History] Carvedilol [Coreg] 3.125 mg PO BID-W/MEALS 10/29/21 [History] Cbd Gummy 1 tab PO DAILY 10/29/21 [History] Cholecalciferol [Vitamin D3 (25 Mcg = 1000 Iu)] 50 mcg PO DAILY 10/29/21 [History] Cyanocobalamin (Vitamin B-12) [Vitamin B-12] 1,000 mcg PO DAILY 10/29/21 [History] Insulin Aspart [NovoLOG Flexpen] 4 unit SQ ACHS PRN 10/29/21 [History] Multivitamins, Thera [Multivitamin (formulary)] 1 tab PO DAILY 10/29/21 [History] SILVER sulfADIAZINE CREAM [Silvadene Cream] 1 applic TOPICAL DAILY PRN 10/29/21 [History] Zinc 50 mg PO DAILY 10/29/21 [History] Cefuroxime Axetil [Ceftin] 500 mg PO BID 5 Days #10 tab 11/03/21 [Rx] Dulaglutide [Trulicity] 1.5 mg SQ WEEKLY #1 each 11/03/21 [Rx] Insulin Glargine,Hum.rec.anlog [Lantus Solostar Pen] 14 unit SQ DAILY #0 11/03/21 [Rx] amLODIPine [Norvasc] 5 mg PO DAILY #30 tab 11/03/21 [Rx] Follow up Appointment(s)/Referral(s): [facility], [NON-STAFF] - [facility] [facility] [NON-STAFF] - Delores Souza NPC [REFERRING] - 1 Week (PCP) Leonel Borden MD [STAFF PHYSICIAN] - 1 Week (Cardiology) Mukesh Jones MD [STAFF PHYSICIAN] - 1 Week (Urology) Patient Instructions/Handouts: Urinary Tract Infection in Men (DC), Hypertension (DC) Activity/Diet/Wound Care/Special Instructions: Heart healthy diet Activity is restricted till you see your doctor we recommend to check your glucoses 4 times a day, before each meal and at bedtime, keep results in a log book and bring it to your doctor on your appointment date If your glucose less than 70 or more than 400, then call [phone] on come to emergency room we recommend to follow up with your primary care doctor,please call to make appointment in one week, you have the contact information as you informed the medical team Discharge/Stand Alone Forms: Who Do I Call? Discharge Disposition: HOME WITH HOME HEALTH SERVICES
[2021-11-04] MEDS ORDERED: INSULIN DETEMIR (LEVEMIR) 100 UNIT/ML SYR SQ SCH (07:00)
== END 2021-11-03 16:34 | disposition home health service (06) | DRG 690 ==
LOC: EC 05:40 → 4SSUR 06:11 → 3SCARD 07:09
PROVIDERS: ADMIT Hospitalist; ATTEND Hospitalist
PROC: 0T7D8ZZ Dilation of Urethra, Via Natural or Artificial Opening Endoscopic (ICD-10-PCS; principal; 2021-10-30)
DX: N39.0 Urinary tract infection, site not specified (principal); I13.0 Hypertensive heart and chronic kidney disease with heart failure and stage 1 through stage 4 chronic kidney disease, or unspecified chronic kidney disease; I50.32 Chronic diastolic (congestive) heart failure; I48.21 Permanent atrial fibrillation; N13.8 Other obstructive and reflux uropathy; N35.911 Unspecified urethral stricture, male, meatal; R77.8 Other specified abnormalities of plasma proteins; I37.1 Nonrheumatic pulmonary valve insufficiency; N47.1 Phimosis; N18.30 Chronic kidney disease, stage 3 unspecified; R53.81 Other malaise; E78.5 Hyperlipidemia, unspecified; R09.02 Hypoxemia; E86.0 Dehydration; W06.XXXA Fall from bed, initial encounter; E11.22 Type 2 diabetes mellitus with diabetic chronic kidney disease; E11.65 Type 2 diabetes mellitus with hyperglycemia; Z90.49 Acquired absence of other specified parts of digestive tract; Y92.003 Bedroom of unspecified non-institutional (private) residence as the place of occurrence of the external cause; Z79.01 Long term (current) use of anticoagulants; Z79.4 Long term (current) use of insulin; Z79.899 Other long term (current) drug therapy; Z88.5 Allergy status to narcotic agent
CPT/HCPCS: 36415; 71045; 74018; 80048; 80053; 80076; 81001; 82009; 82803; 83036; 83605; 83735; 83880; 84443; 84484; 85025; 85610; 85730; 87040; 87086; 93005; 93306; 94640; 94760; 96361; 96374; 96375; 99291